=== PATIENT | female | born 1955 | race Caucasian/White ===

== ENCOUNTER 2016-05-14 21:23 | Inpatient (IN) | payer OTHER ==
[2016-05-14] MEDS ORDERED: ASPIRIN PO STA (21:57)
[2016-05-14] MEDS ORDERED: NITROGLYCERIN SL PRN (21:57)
--- NOTE | 2016-05-14 22:02 | PROVIDER DOCUMENTATION ---
HPI-General Adult - General Source: patient, family - History of Present Illness -Gen Adult Nature of Presenting Problems: Pt is a 61 yof who presents to ER with CC of increased lethargy. Pt reports that she has breast, bone, liver, liver, and brain cancer and was in [place] on Sunday for a cancer treatment. Pt also reports that in Mid-March, she had approximately 800mL of fluid removed from "the space between her lungs and back." On exam, pt is mildly hypotensive (108/71) and had 3+ bilateral lower extremity pitting edema. Location of Pain/Injury: reports: none Pain Radiation: reports: no radiation Quality of Pain: reports: none Severity: reports: mild Onset/Duration: reports: unsure, this morning Timing: reports: still present Context/Activities at Onset: reports: rest, sleep Associated Symptoms: reports: fatigue, weakness, other (increased lethargy; "been sleeping all day"). denies: anxiety, arm pain, back/neck pain, chest pain , constipation, cough, diaphoresis, diarrhea, dizziness, EENT symptoms, fever/ chills, genitourinary problems, headaches, heartburn, joint pain, loss of appetite, malaise, muscle aches, sinus congestion/drainage, nausea, rash, seizure, shortness of breath, sensory/motor loss, pain with inspiration, swelling/mass in abdomen, syncope, vomiting, trouble walking <Sergio Jauregui - Last Filed: 05/15/16 01:08> <Eldon Jonas - Last Filed: 05/15/16 04:30> - General Chief Complaint: General Adult Stated Complaint: SOB Time Seen by Provider: 05/14/16 21:53 Allergies/Adverse Reactions: Patient Allergies Allergy/AdvReac Type Severity Reaction Status Date / Time codeine [Codeine] Allergy Severe Unknown Verified 05/14/16 22:35 meperidine HCl * Allergy Severe Unknown Verified 05/14/16 22:35 [From Demerol] Home Medications: Home Medication List Medication Instructions Recorded Confirmed Last Taken Type Potassium Chloride E.r. [Klor-Con] 20 meq PO DAILY 10/28/13 05/14/16 05/14/16 07 :00 History Omeprazole [Prilosec] 20 mg PO DAILY@0700 #0 capsule 11/01/13 05/14/1617 07:00 Rx Metoprolol Succinate [Toprol Xl] 12.5 mg PO DAILY 12/05/13 05/14/16 05/14/16 07: 00 History Folic Acid 1 mg PO DAILY 08/31/14 05/14/16 05/14/16 07:00 History Ergocalciferol (Vitamin D2) 50,000 unit PO DIRECTED 09/02/14 05/14/16 07:00 History [Drisdol] Cetirizine HCl [Zyrtec] 10 mg PO DAILY 05/14/16 05/14/16 05/14/16 07:00 History Dexamethasone [Decadron] 4 mg PO BID 05/14/16 05/14/16 05/14/16 19:00 History Furosemide [Lasix] 40 mg PO DAILY 05/14/16 05/14/16 05/14/16 07:00 History Gabapentin 300 mg PO TID 05/14/16 05/14/16 05/14/16 19:00 History Spironolactone [Aldactone] 25 mg PO BID 05/14/16 05/14/16 05/14/16 19:00 History Review of Systems - Adult - REVIEW OF SYSTEMS - ADULT Constitutional: reports: fatique, other (increased lethargy). denies: chills, fever, night sweats, weight gain, weight loss Eyes: reports: no symptoms reported Ears, Nose, Mouth & Throat: reports: no symptoms reported Cardiovascular: denies: chest pain, edema, heart murmur, irregular heart rate, orthopnea, palpitations, poor circulation, PND, syncope Respiratory: denies: chronic cough, cough, dyspnea on exertion, excessive sputum production, hemoptysis, pleurisy, shortness of breath, wheezing Gastrointestinal: denies: abdominal pain, hematemesis, constipation, diarrhea, difficulty swallowing, frequent heartburn, nausea, poor appetite, rectal bleeding, vomiting Genitourinary: reports: no symptoms reported Musculoskeletal: reports: no symptoms reported Integumentary: reports: no symptoms reported Neurological: reports: no symptoms reported Psychiatric: reports: no symptoms reported Endocrine: reports: no symptoms reported Hematologic/Lymphatic: reports: no symptoms reported Allergic/Immunologic: reports: no symptoms reported All Other Systems: Reviewed and Negative <Sergio Jauregui - Last Filed: 05/15/16 01:08> Past History - Adult - PAST MEDICAL HISTORY-ADULT Review of Records: reports: Nursing Assessment Review, Medications Reviewed Other Conditions: reports: other cancer (breast;bone;liver;brain) - IMMUNIZATION STATUS Childhood Immunizations: See Nurse Assessment Flu Vaccine: See Nurse Assessment <Sergio Jauregui - Last Filed: 05/15/16 01:08> Physical Exam-General - PHYSICAL EXAM-ADULT Initial Vital Signs Reviewed: Yes - CONSTITUTIONAL General Appearance: appears well, alert, mild distress, lethargic, slow to respond. negative: no apparent distress, moderate distress, severe distress, cachetic, obese, thin, anxious, obtunded, combative - RESPIRATORY Respiratory: chest non-tender, lungs clear, normal breath sounds. negative: respiratory distress, decreased breath sounds, accessory muscle use, wheezing - CARDIOVASCULAR Cardiovascular: normal peripheral pulses, regular rate, rhythm. negative: bradycardia, tachycardia, irregularly irregular - LYMPHATIC Lymphatic: no adenopathy. negative: axilla node tender, cervical node tenderness, inguinal node tender - MUSCULOSKELETAL Back Exam: no CVA tenderness, no vertebral tenderness. negative: CVA tenderness , decreased range of motion Extremity: pedal edema, swelling (3+ pitting edema, bilateral lower extremity). negative: normal range of motion, non-tender, normal gait, erythema, tenderness - SKIN Integumentary: swelling. negative: normal color, normal turgor, warm/dry, abrasion(s), erythema, laceration(s), tenderness - NEUROLOGIC Neurologic: grossly normal, no motor/sensory deficits. negative: facial droop, focal weakness, motor weakness, sensory deficit - PSYCHIATRIC Psych/Mental Status: normal mood/affect, normal thought content, normal thought process, oriented x 3. negative: disoriented x 3, anxious, disheveled, depressed affect, paranoid, tearful <Sergio Jauregui - Last Filed: 05/15/16 01:08> Progress - PLAN OF CARE/RESULTS Progress/Plan/Lab Results: Vital Signs - 24 hr 05/14/16 21:26 Temperature 97.6 F Pulse Rate 81 Respiratory 12 Rate Blood Pressure 108/59 O2 Sat by Pulse 100 Oximetry Orders Category Date Time Status Cardiac Monitoring DIRECTED Care 05/14/16 21:57 Active Saline Loc NOW Care 05/14/16 21:57 Active CHEST-2 VIEWS [RAD] Stat Exams 05/14/16 21:57 Taken HEAD W/O CONTRAST [CT] Stat Exams 05/14/16 21:58 Taken CBC WITH ELECTRONIC DIFF [HEME] Stat Lab 05/14/16 22:38 Completed CK PROFILE [SP CHEM] Stat Lab 05/14/16 22:38 Completed COMPREHENSIVE METABOLIC PANEL [CHEM] Stat Lab 05/14/16 22:38 Completed MAGNESIUM [CHEM] Stat Lab 05/14/16 22:38 Completed PRO B-NATRIURETIC PEPTIDE Stat Lab 05/14/16 22:38 Received PROTIME WITH INR [COAG] Stat Lab 05/14/16 22:38 Completed PTT [COAG] Stat Lab 05/14/16 22:38 Completed TROPONIN T Stat Lab 05/14/16 22:38 Completed Aspirin Med 05/14/16 21:57 Discontinued 325 mg PO STAT STA Nitroglycerin Sl [Nitroglycerin] Med 05/14/16 21:57 Active 0.4 mg SL Q5M PRN PRN EKG [EKG] Stat Ther 05/14/16 21:57 Ordered Laboratory Tests 05/14/16 05/14/16 05/14/16 22:38 22:38 22:38 WBC 7.40 RBC 3.44 L Hgb 10.3 L Hct 32.7 L MCV 95.1 MCH 29.9 MCHC 31.5 L RDW Std Deviation 15.8 H Plt Count 155 MPV 10.6 H Immature Gran % (Auto) 0.3 Neut % (Auto) 92.6 H Lymph % (Auto) 1.8 L [place] % (Auto) 4.5 Eos % (Auto) 0.7 Baso % (Auto) 0.1 Immature Gran # (Auto) 0.02 Neut # (Auto) 6.86 H Lymph # (Auto) 0.13 L [place] # (Auto) 0.33 Eos # (Auto) 0.05 Baso # (Auto) 0.01 PT 12.5 H INR 1.18 PTT (Actin FS) 27.2 Sodium 136 Potassium 3.9 Chloride 94 L Carbon Dioxide 29 Anion Gap 13 BUN 20 Creatinine 1.0 H Estimated GFR/1.73 m2 57 BUN/Creatinine Ratio 20 Glucose 127 H Calculated Osmolality 276 Calcium 8.8 Magnesium 1.9 Total Bilirubin 0.18 L AST 32 H ALT 15 Alkaline Phosphatase 89 Creatine Kinase 102 Troponin T Total Protein 5.8 L Albumin 3.5 Globulin 2.3 Albumin/Globulin Ratio 1.5 05/14/16 22:38 WBC RBC Hgb Hct MCV MCH MCHC RDW Std Deviation Plt Count MPV Immature Gran % (Auto) Neut % (Auto) Lymph % (Auto) [place] % (Auto) Eos % (Auto) Baso % (Auto) Immature Gran # (Auto) Neut # (Auto) Lymph # (Auto) [place] # (Auto) Eos # (Auto) Baso # (Auto) PT INR PTT (Actin FS) Sodium Potassium Chloride Carbon Dioxide Anion Gap BUN Creatinine Estimated GFR/1.73 m2 BUN/Creatinine Ratio Glucose Calculated Osmolality Calcium Magnesium Total Bilirubin AST ALT Alkaline Phosphatase Creatine Kinase Troponin T 0.015 Total Protein Albumin Globulin Albumin/Globulin Ratio - XRAY 1 XRAY: Bilateral XRAY Study: Chest Impression: See EMR Report XRAY Interpretation: R sided effusion - CONSULTS/PCP/HOSPITALIST Notification #1 *Consult/PCP/Hospitalist*: Dr. Holder (Hospitalist) Time Discussed: 23:26 Consult Disposition: Admit (Dr. Holder wanted urine tested before accepting) #2 Consult: Dr. Holder (Hospitalist) Time Discussed: 01:10 Consult Disposition: Admit <Sergio Jauregui - Last Filed: 05/15/16 01:08> Departure - Departure Time of Disposition Order: 23:26 Certified Medical Emergency: Emergent <Sergio Jauregui - Last Filed: 05/15/16 01:08> - Departure Time of Disposition Order: 04:00 Certified Medical Emergency: Emergent <Eldon Jonas - Last Filed: 05/15/16 04:30> - Departure DIAGNOSIS: Hepatic encephalopathy Disposition: ADMITTED INPATIENT 09 Condition: Stable Attestation - Scribe Verification/Attestation Scribe:: Sergio Jauregui Acting as Scribe for:: Eldon Jonas Scribe documention review:: This chart was documented by a scribe and accurately reflects the service the provider performed and the decisions made by the provider. <Sergio Jauregui - Last Filed: 05/15/16 01:08> Physician Attestation
[2016-05-14 23:04] LABS: BASO% 0.1 % (0.0-0.8); EOS# 0.05 X1000 (0.0-0.7); EOS% 0.7 % (0.0-10.0); HEMATOCRIT 32.7 % (37.0-47.0); HEMOGLOBIN 10.3 g/dL (12.0-16.0); IMM GRAN# 0.02 X1000 (0.0-0.04); IMM GRAN% 0.3 % (0.0-0.5); LYMPH# 0.13 X1000 (1.2-3.4); LYMPH% 1.8 % (20.5-51.1); MANUAL DIFF NEEDED? NO; MCH 29.9 PG (27-31); MCHC 31.5 g/dL (33-37); MCV 95.1 FL (81-99); MONO# 0.33 X1000 (0.11-0.59); MONO% 4.5 % (1.7-9.3); MPV 10.6 FL (7.4-10.4); NEUT% 92.6 % (42.2-75.2); PLT 155 X1000 (130-400); RBC 3.44 XMIL (4.2-5.4)
[2016-05-14 23:11] LABS: INR 1.18; PROTIME 12.5 Seconds (9.2-11.7); PTT 27.2 Seconds (22.0-36.0)
[2016-05-14 23:15] LABS: ALBUMIN 3.5 g/dL (3.5-5.0); CALCIUM 8.8 mg/dL (8.8-10.2); MAGNESIUM 1.9 mg/dL (1.5-2.7); POTASSIUM 3.9 mmol/L (3.5-5.1); TOTAL BILIRUBIN 0.18 mg/dL (0.20-1.00); TOTAL PROTEIN 5.8 g/dL (6.3-8.3)
[2016-05-15] MEDS ORDERED: DECADRON IV ONE (00:34)
[2016-05-15 00:40] LABS: URINE MICRO REVIEW NEEDED? NO; URINE SOURCE CATH
[2016-05-15 00:41] LABS: BILIRUBIN URINE NEGATIVE (NEGATIVE); BLOOD URINE NEGATIVE (NEGATIVE); COLOR YELLOW; GLUCOSE URINE NEGATIVE (NEGATIVE); LEUKOCYTES URINE NEGATIVE (NEGATIVE); NITRITE URINE NEGATIVE (NEGATIVE); PROTEIN URINE NEGATIVE (NEGATIVE); TURBIDITY URINE CLEAR (CLEAR); UROBILINOGEN URINE NORMAL (NORMAL)
[2016-05-15 00:43] LABS: UR EPITHELIAL CELLS <10 /HPF (<10); URINE BACTERIA NEGATIVE /HPF; URINE RBC <10 /HPF (<10); URINE WBC <10 /HPF (<10)
[2016-05-15 01:03] LABS: ALLEN TEST YES; BE 7.5 mmoll (-3.0-3.0); BLOOD TYPE ARTERIAL; DRAW SITE R RADIAL; METHB 1.2 % (0.0-1.5); O2(CT) 12.3 mL/dL (15.0-23.0); PO2(98.6) 107 mmHg (60-100); SAMPLE BLOOD; SAO2 98.1 % (95.0-100.0); THB 9.1 g/dL (11.5-17.4)
[2016-05-15 01:04] LABS: MODALITY CANNULA; PCO2(98.6) 54 mmHg (35-45)
--- NOTE | 2016-05-15 04:34 | HISTORY AND PHYSICAL ---
PRIMARY CARE PROVIDER: Dr. Kael Beckwith. PRIMARY [employer] SALES COUNTER MANAGER: Dr. Cao at [facility]. NEUROLOGIST: Her neurologist I believe is a Dr. Sifuentes, also at [place]. CHIEF COMPLAINT: Altered mental status, increased drowsiness and weakness. HISTORY OF PRESENT ILLNESS: Ms Beasley is an unfortunate 61-year-old female who has a past medical history of breast cancer with metastases to the brain, bone and liver. The source of information during the examination is her who is at the bedside. Ms Beasley has other medical problems such as COPD, chronic diastolic congestive heart failure, and continues to smoke cigarettes roughly a 3rd of a pack per day. She presented to the emergency room tonight according to her because since this last week she has had increased altered mental status , has been more lethargic and has been sleeping more. On of this previous week, she reportedly had her Ceftin. On Sunday, she had she had chemotherapy treatment. After that time as noted above she became less and less responsive. A chest x-ray obtained in the emergency room showed a left-sided pleural effusion which appears to be chronic. On April 03, according to the , she had 800 mL removed by thoracentesis from the left lung. Noncontrasted CT was obtained which did limit the study, however, it did show a small area of ischemia or edema in the right basal ganglia and a questionable area in the cerebellum. It recommended followup with MRI. Laboratory data completed in the emergency room was grossly normal and she will be admitted to the medical floor for further evaluation and treatment. PAST MEDICAL HISTORY: Congestive heart failure secondary to diastolic dysfunction; breast cancer with metastasis to the brain, bone and liver; osteoporosis; and moderate COPD with 3 L home O2. PAST SURGICAL HISTORY: Tonsillectomy with adenoidectomy, left mastectomy, hysterectomy, Port-A- Cath placement and removal x2, thoracentesis, right chemical pleurodesis. ALLERGY: Codeine causing nausea and vomiting. FAMILY HISTORY: Both parents in a motor vehicle accident. SOCIAL HISTORY: Lives with her . Has a 50 year pack history of smoking. Continues to smoke roughly a 3rd of a pack of cigarettes per day. Denies alcohol or illicit drug use or abuse. HOME MEDICATIONS: 1. Klor-Con 20 mEq p.o. daily. 2. Prilosec 20 mg p.o. daily. 3. Toprol-XL 12.5 mg p.o. daily. 4. Folic acid 1 mg p.o. daily. 5. Vitamin D2 5000 units p.o. as directed. 6. Lasix 40 mg p.o. daily. 7. Neurontin 300 mg p.o. t.i.d. 8. Zyrtec 10 mg p.o. daily. 9. Decadron 4 mg p.o. b.i.d. 10. Aldactone 25 mg p.o. b.i.d. REVIEW OF SYSTEMS: Constitutional: Fourteen point review of systems could not be conducted with the patient as she is very lethargic, on the verge of being obtunded. She does reflex to painful stimulus but immediately closes her eyes. She did not say anything during the examination. Review of systems was conducted with the . He stated increased fatigue and lethargy, decreased ability to do ADLs, increased weakness. HEENT: Denied any acute visual changes that he was aware of. Cardiovascular: Denied chest pain, palpitations. Pulmonary: See HPI as the patient did have some increase of shortness of breath. Gastrointestinal: Decreased bowel movements over the last couple of days. No reflux, melena, hematochezia, hematemesis. No polydipsia, polyuria, polyphagia. Skin: Patient is positive for 2 healing skin ulcerations on bilateral shins as well as right forearm ecchymosis. Genitourinary: No dysuria or stress incontinence. Neurological: See HPI related to decreased mentation. PHYSICAL EXAMINATION: VITAL SIGNS: Temperature 97.6 degrees, pulse 81, respirations 12, blood pressure 180/59, oxygen saturation 100% on 3 L nasal cannula. GENERAL: Chronically ill-appearing 61-year-old lady does not answer questions, is very lethargic, does reflex to deep stimulation in the ER stretcher, is not in acute distress. HEENT: Head is atraumatic, normocephalic. Pupils equal, round, reactive to light. Extraocular eye movement intact. Sclerae is anicteric. Conjunctivae is not pale. Oral mucosa is moist. NECK: Supple. No JVD. Trachea is midline. No bruit on auscultation. CARDIOVASCULAR: S1-S2 appreciated. Regular rhythm. No appreciable murmurs, gallops, rubs. LUNGS: Poor inspiratory effort. Diminished breath sounds bilaterally left greater than right. Mild crepitations noted in bilateral bases. No wheezing or rhonchi. Shallow respirations noted. Symmetrical rise and fall with respirations. ABDOMEN: Protuberant, soft, nondistended, nontender. Bowel sounds normoactive all 4 quadrants. No pulsatile mass. No organomegaly could be palpated. EXTREMITIES: Right upper extremity 1+ pitting edema. Left upper extremity in a compression stocking related to chronic lymphedema which appears to be 3+. Bilateral lower extremities 2+ pitting edema. 1+ pedal pulses bilaterally. No clubbing or cyanosis. SKIN: Warm and dry. Healing ulceration noted on bilateral shins. Right upper extremity noted ecchymosis. GENITOURINARY: No bladder distention noted, otherwise deferred. BREASTS: Left mastectomy noted, otherwise deferred. NEUROLOGICAL: Patient is lethargic and does not respond to verbal questioning so baseline orientation could not be obtained. The patient did follow commands to a degree. Bilateral upper extremities could be held partially against gravity but not long enough to assess for asterixis. Bilateral lower extremities again could be lifted slightly against gravity for 1 -2 seconds. Cranial nerves could not be fully tested during examination. DIAGNOSTIC DATA: Noncontrasted CT of the head, which yielded limited results, did show a small area of ischemia/edema in the right basal ganglia with a questionable area in the cerebellum. Chest x-ray showed a chronic left-sided effusion. LABORATORY DATA: WBC 7.40, hemoglobin 10.3, hematocrit 32.7, platelet count 155 ,000. PT 12.5, INR 1.18 PTT 27.2. ABG: pH 7.40, pCO2 54, PO2 107, bicarb 30.8, this was obtained on 3 L nasal cannula. Sodium 136, potassium 3.9, chloride 94, carbon dioxide 29, BUN 20, creatinine 1, glucose 127, AST 32, ALT 15, total bilirubin 0.18. Ammonia level 14. Urine unremarkable. ASSESSMENT AND PLAN: 1. Encephalopathy, paraneoplastic versus toxic. 2. Chronic obstructive pulmonary disease. 3. Chronic diastolic congestive heart failure. 4. Breast cancer with metastasis to the brain, bone and liver. 5. Continued tobacco abuse. PLAN: The patient will be admitted to the medical floor with telemetry. She was noted to be mildly hypercapnic. However, given her history of COPD it is likely that she is a chronic CO2 retainer and she is compensated with a pH of 7.40. We will monitor at this time and not apply BiPAP as this is likely not the reason for the patient's sedation. She has been placed in inpatient status. We will continue her home medications and defer changes to Dr. Beckwith, her primary care provider. Ten mg IV Decadron was given in the emergency room. We will consult Dr. Kiera Dawn as the family wished not to see Dr. Guo as she had previously. MRI with contrast of the brain in a.m. to evaluate for new lesions which could be the source of her change in mentation. It is possible that the patient may need a thoracentesis as she has in the past. For this reason, we will use intermittent pneumatic compression hose for DVT prophylaxis instead of Lovenox. Vizcaino catheter will be placed for adequate I Os. The patient will be held NPO at this time. According to family, she was able to maintain most of her activities of daily living so Physical Therapy will be consulted. Recheck CBC and BMP. Check TSH level. Further recommendations per patient clinical course. Dictated by KUN Gonzalez for Alfred Holder MD Case discussed with WOOD CABINETMAKER and exam done independently by me. MARLON
[2016-05-15 05:04] LABS: AGAP 12; BUN 22 mg/dL (8-22); CALCIUM 8.5 mg/dL (8.8-10.2); CHLORIDE 96 mmol/L (98-107); COSMO 279; POTASSIUM 4.2 mmol/L (3.5-5.1); SODIUM 137 mmol/L (136-145); TCO2 29 mmol/L (25-35)
[2016-05-15 05:09] LABS: HEMATOCRIT 30.7 % (37.0-47.0); HEMOGLOBIN 9.6 g/dL (12.0-16.0); IMM GRAN# 0.02 X1000 (0.0-0.04); IMM GRAN% 0.3 % (0.0-0.5); LYMPH# 0.09 X1000 (1.2-3.4); LYMPH% 1.5 % (20.5-51.1); MANUAL DIFF NEEDED? YES; MCH 29.6 PG (27-31); MCHC 31.3 g/dL (33-37); MCV 94.8 FL (81-99); MONO# 0.17 X1000 (0.11-0.59); MONO% 2.8 % (1.7-9.3); MPV 8.9 FL (7.4-10.4); NEUT% 95.4 % (42.2-75.2); PLT 115 X1000 (130-400); RBC 3.24 XMIL (4.2-5.4)
[2016-05-15 06:34] LABS: BANDS 4 % (0-1); LYMPHS 2 % (21-51); MONO 4 % (1-9)
--- NOTE | 2016-05-15 07:30 | Diag Imaging Result Document ---
PROCEDURE NAME: HEAD W/O CONTRAST - 05/14/2016 CT BRAIN WITHOUT CONTRAST: TECHNIQUE: Dose-reduction protocol. COMPARISON: No comparison films. FINDINGS: No parenchymal hemorrhage. No epidural or subdural hematoma. No subarachnoid hemorrhage. There is atrophy. There are ischemic changes versus edema in the right basal ganglia near the internal capsule. Questionable small hypodense areas in the cerebellum. No hydrocephalus. No sinus opacification. IMPRESSION: 1. No hemorrhage. 2. Atrophy. 3. Microvascular ischemic changes versus edema in the right basal ganglia and possible cerebellum. An MRI is recommended. A preliminary report was given at 10:21 p.m.
--- NOTE | 2016-05-15 07:47 | Diag Imaging Result Document ---
PROCEDURE NAME: CHEST-2 VIEWS - 05/14/2016 FRONTAL AND LATERAL CHEST, TWO VIEWS: COMPARISON: Compared to 01/15/2014. FINDINGS: There is small to moderate sized bilateral pleural effusions. There is bibasilar atelectasis and there may be underlying infiltrates as well. The heart is not enlarged. The patient previously had a right-sided [id number]. This has been removed. No pneumothorax Mild vascular distension. IMPRESSION: Persistent pleural effusions with mild pulmonary edema and basilar atelectasis.
[2016-05-15] MEDS ORDERED: KLOR-CON PO SCH (09:00)
[2016-05-15] MEDS ORDERED: ALDACTONE PO SCH (09:00)
[2016-05-15] MEDS ORDERED: DECADRON PO SCH (09:00)
[2016-05-15] MEDS ORDERED: NEURONTIN PO SCH (09:00)
[2016-05-15] MEDS ORDERED: LASIX PO SCH (09:00)
[2016-05-15] MEDS: VITAMIN D PO SCH (09:28)
[2016-05-15] MEDS: TOPROL XL PO SCH (09:29)
[2016-05-15] MEDS: PRILOSEC PO SCH (09:31)
[2016-05-15] MEDS: FOLIC ACID PO SCH (09:33)
--- NOTE | 2016-05-15 10:07 | Diag Imaging Result Document ---
PROCEDURE NAME: MRI BRAIN W W/O CONTRAST - 05/15/2016 MRI OF THE BRAIN WITH AND WITHOUT GADOLINIUM: FINDINGS: There is ill-defined increased T2-weighted signal intensity present in the mid basal ganglia region on the right side extending slightly into the right cerebral peduncle anteriorly. There may be a minimal focus of restricted diffusion in this region. The diffusion restriction region is much smaller than the abnormality on T2. There is no evidence of bleed or abnormal extra-axial fluid collection. There is abnormal gadolinium enhancement within the region in question measuring at least 15 mm in diameter. This is somewhat heterogeneous with central as well as peripheral enhancement. Additionally there is a small focus of abnormal enhancement in the subcortical white matter in the right parietal lobe near the interhemispheric fissure measuring between 4 to 5 mm in size. There are no previous MR studies available for comparison. IMPRESSION: Metastatic disease in the right hemisphere as described. By history, the patient had a previous study in [place] which is not available for comparison. Direct comparison would be desirable.
[2016-05-15] MEDS: DECADRON IV SCH ×3 (11:35→22:45)
[2016-05-15] MEDS: LASIX IV SCH ×2 (11:36→22:45)
[2016-05-15] MEDS: ZOSYN 4.5 GM/NS 100 ML IV SCH ×2 (13:35→18:16)
--- NOTE | 2016-05-15 14:43 | PROGRESS NOTE ---
DATE: 05/15/2016 Ms. Beasley was admitted to [facility] on 05/15/2015 with altered mental status. She has a long standing history of breast cancer with metastases to the liver and brain. Her initial CT scan demonstrated no hemorrhage or atrophy. There were questionable hypodense areas in the cerebellum and the right ganglia. She is already taking Decadron and Lasix at home. She has had increasing shortness of breath. Her chest x-ray showed small to moderate size bilateral pleural effusions. There is bibasilar atelectasis with potentially underlying infiltrates. When I just saw her she would open her eyes to verbal stimuli. She would answer questions and then fall back asleep. PHYSICAL EXAMINATION: Vital Signs: She is afebrile. Pulse 74, respirations 18, blood pressure 132/69. Cardiovascular: Regular rate and rhythm. Lungs: Diminished breath sounds in the bases bilaterally. Abdomen: Soft, nontender, with active bowel sounds. Extremities: Trace ankle edema. ASSESSMENT AND PLAN: 1. Altered mental status. The etiology of her mental status changes is unclear. Her ammonia level was normal which would tend to argue against a hepatic encephalopathy. I have not been able to find any obvious source of infection. She has a normal white count. Her urinalysis was clear. Her MRI of the brain today demonstrated metastatic disease in the right hemisphere. It also showed the possibility of a 3rd lesion in the right parietal lobe near the interhemispheric fissure. I am concerned that she has encephalopathy due to brain metastases. I am going to begin Decadron 4 mg IV q.6 hours and Lasix 40 mg IV q.12 hours. 2. Acute on chronic congestive heart failure secondary to diastolic dysfunction. We will place her on a salt and fluid restricted diet and aggressively diurese her with Lasix. We will follow strict I's and O's. 3. Chronic obstructive pulmonary disease. Chest x-ray shows the possibility of an infiltrate. We will continue supplemental O2, add DuoNeb nebulizer treatments and begin IV Zosyn.
[2016-05-15] MEDS: DUONEB (A & A) INH SCH ×3 (15:40→23:28)
--- NOTE | 2016-05-15 18:30 | CONSULTATION ---
DATE OF CONSULTATION: 05/15/2016 ADMISSION REQUESTED BY: Dr. Holder. REASON FOR ADMISSION: Metastatic breast cancer, patient currently receiving treatment in [place]. HISTORY OF PRESENT ILLNESS: Ms Beasley is a 61-year-old female with metastatic breast cancer who presented to [facility] Emergency Department complaining of increased lethargy. The patient is not able to participate in interview due to her lethargy. History is taken from her and her other family members at bedside. Patient is currently getting treated at [place] under Dr. Cao for metastatic breast cancer with metastasis to the liver, brain and bones. She is currently receiving Herceptin and Zometa as well as Faslodex. The patient's last treatment was on 05/11/2016. Since that time her reports she has been increasingly lethargic and not easily aroused. The patient will be open her eyes to stimulus but then will not continue to stay awake long enough to really talk with her. Patient is status post thoracentesis for pleural effusion back in March. Per the the patient's last treatment was Herceptin and Zometa. She is next due for Faslodex on 06/02/2016. She had a brain MRI back in November 2015. Patient is status post CyberKnife radiation therapy for 2 known brain lesions previously. Per the 1 was "7 mm outside the brain and the other 17 mm inside" the brain. Only other complaint the identifies is the patient being somewhat constipated over the past week. PAST MEDICAL HISTORY: 1. Metastatic breast cancer. 2. COPD. 3. CHF. 4. Bone metastasis/osteoporosis. PAST SURGICAL HISTORY: 1. Tonsillectomy. 2. Left mastectomy with lymph node dissection. 3. Hysterectomy. 4. Thoracentesis. 5. Port-A-Cath insertion and removal x2. Patient does not currently have a Port-A-Cath in place. SOCIAL HISTORY: She smokes about 2-3 cigarettes per day. She has been a smoker for 50 years. Lives with . She does not use any illicit drugs or drink any alcohol. FAMILY HISTORY: Both her parents in a motor vehicle accident. The family denies any history of cancer. REVIEW OF SYSTEMS: As per the HPI. All else is negative or noncontributory. PHYSICAL EXAMINATION: Vital Signs: Temperature 97.9, pulse rate 74, respirations 18, blood pressure 132/69, O2 saturation 97% on 3 L nasal cannula. HEENT: Head appears to be normocephalic., atraumatic. Eyes. Patient only briefly opened her eyes to stimulus. Ears, nose, throat, neck and mouth. Oral mucosa appears to be normal. Trachea midline. Cardiovascular: S1-S2 heard. No murmurs, gallops, rubs appreciated. Regular rate and rhythm. Respiratory: Essentially clear to auscultation bilaterally anteriorly. Gastrointestinal: Abdomen soft, nondistended. Positive bowel sounds. Musculoskeletal: No obvious bony abnormalities. Extremities: The patient does have bilateral +2 pitting edema with some mild erythema, left is equal to right. Neurologic: Again patient will awaken to mild stimulus but will not stay awake for very long. LABS AND STUDIES: Brain MRI shows metastatic disease but there is no comparison. Chest x-ray shows persistent pleural effusion with mild pulmonary edema and basilar atelectasis. White blood cell 6.01, hemoglobin 9.6, hematocrit 30.7, platelets 115,000. Sodium 137, potassium 4.2, chloride 96, CO2 29, BUN 22, creatinine 0.9, glucose 136, ammonia 14, proBNP 899. ASSESSMENT AND PLAN: 1. Metastatic breast cancer. Patient is currently receiving Faslodex as well as Herceptin and Zometa per the family. She is being treated at [facility] by Dr. Cao. Next treatment not due till 06/02/2016. 2. Possible new metastasis on MRI. The noted only 2 previous brain lesions and the current MRI is possibly showing a 3rd lesion. Will go ahead and request that the MRI be sent to the radiology department here for comparison. Patient was on Decadron previously prior to admission. Her Decadron has now been increased to 4 mg IV q.i.d. Await comparison. Patient is status post previously CyberKnife radiation. 3. Chronic obstructive pulmonary disease. Chest x-ray shows some persistent pleural effusions but no obvious infection. Patient is however being covered for infection. Continue IV antibiotics. O2 support. ER doctor discussed starting nebulizer treatment. She is also getting the steroids as per above. Follow cultures. 4. Altered mental status. Will ask for comparison MRI as noted above. She is being covered for infection. Compare MRIs as noted above. She is being covered for infection. No evidence of any metabolic encephalopathy currently. The patient also has no evidence of neutropenia. 5. Congestive heart failure. Patient is getting Lasix intravenous. Monitor for fluid overload. Thank you for allowing us to participate in Ms Beasley's care while she is here at [facility]. Will continue follow along, adjust our treatment plan per hospital course. Dictated by SHERRI Ortega for Kiera Lopez MD
[2016-05-16] MEDS: ZOSYN 4.5 GM/NS 100 ML IV SCH ×4 (03:12→17:54)
[2016-05-16] MEDS: DUONEB (A & A) INH SCH ×6 (03:25→22:55)
[2016-05-16] MEDS: DECADRON IV SCH ×4 (05:19→22:05)
[2016-05-16] MEDS: PRILOSEC PO SCH (06:26)
[2016-05-16] MEDS: FOLIC ACID PO SCH (09:05)
[2016-05-16] MEDS: TOPROL XL PO SCH (09:05)
[2016-05-16 09:09] LABS: HEMATOCRIT 32.2 % (37.0-47.0); MCH 29.7 PG (27-31); MCHC 31.1 g/dL (33-37); MCV 95.5 FL (81-99); MPV 10.9 FL (7.4-10.4); RBC 3.37 XMIL (4.2-5.4)
--- NOTE | 2016-05-16 09:21 | Diag Imaging Result Document ---
PROCEDURE NAME: CHEST-PORTABLE - 05/16/2016 SINGLE FRONTAL RADIOGRAPH OF THE CHEST: COMPARISON: 05/14/2016. FINDINGS: Inspiration is suboptimal. Bilateral effusions are approximately stable. Bibasilar atelectasis and/or infiltrate is unchanged. No new consolidation is identified. Cardiac silhouette is stable. IMPRESSION: Stable chest.
--- NOTE | 2016-05-16 09:29 | PROGRESS NOTE ---
DATE: 05/16/2016 SUBJECTIVE: Ms. Beasley is much more awake. She is in easily arousable and answers questions appropriately. Her MRI of the brain demonstrated a possible new metastases. We started her on IV Lasix and IV Decadron. She was also admitted with chronic respiratory failure secondary to acute COPD exacerbation and acute on chronic congestive heart failure secondary to diastolic dysfunction. She is breathing more comfortably as long as she is wearing her oxygen. Her O2 saturations range from 94% to 97%. They found her early this morning without oxygen, and her O2 saturation was 77%. They resumed her oxygen and her O2 levels are in the mid 90s. She has put out nearly 3 L of fluid. OBJECTIVE: Vital Signs: Temperature 99 degrees, pulse 66, BP 114/58. CV: Regular rate and rhythm. Lungs: Crackles in the bases bilaterally. Abdomen: Soft, nontender, with active bowel sounds. Extremities: Trace pitting edema. ASSESSMENT AND PLAN: 1. Altered mental status. I suspect that her altered mental status was in part due to intracranial metastases with some edema. There was not a shift noted on MRI. We will continue intravenous Decadron and intravenous Lasix. 2. Acute chronic obstructive pulmonary disease exacerbation. We will continue supplemental oxygen, DuoNeb nebulizer treatments, intravenous Decadron and broad-spectrum antibiotics including Zosyn. Chest x-ray yesterday showed the possibility of an infiltrate. She is an immunocompromised host. Given her brain metastases, I do not want to use Levaquin as it would increase the likelihood of seizure activity. 3. Acute on chronic congestive heart failure secondary to diastolic dysfunction. We will continue a salt and fluid-restricted diet and aggressively diurese her with Lasix.
[2016-05-16 10:06] LABS: CALCIUM 8.7 mg/dL (8.8-10.2); POTASSIUM 3.5 mmol/L (3.5-5.1)
[2016-05-16] MEDS: LASIX IV SCH ×2 (13:22→22:05)
[2016-05-17] MEDS: ZOSYN 4.5 GM/NS 100 ML IV SCH ×4 (00:30→21:12)
[2016-05-17] MEDS: DUONEB (A & A) INH SCH ×6 (03:07→23:43)
[2016-05-17] MEDS: PRILOSEC PO SCH (06:22)
[2016-05-17] MEDS: DECADRON IV SCH (08:45)
[2016-05-17] MEDS: FOLIC ACID PO SCH (08:46)
[2016-05-17] MEDS: TOPROL XL PO SCH (08:46)
[2016-05-17] MEDS ORDERED: LASIX IV SCH (09:00)
--- NOTE | 2016-05-17 10:22 | PROGRESS NOTE ---
DATE: 05/17/2016 HISTORY OF PRESENT ILLNESS: Ms. Tashia Beasley is a 61-year-old, lady with a history of breast cancer with distant metastases to the brain. We had started her on IV Decadron and Lasix because of altered mental status. We felt that she was encephalopathic. She is much more awake and alert and she was sitting up in bed and she answered questions appropriately. She was alert and oriented to name, place, and time. She also was noted to have a community-acquired pneumonia as well as acute on chronic flare up of her diastolic congestive heart failure. She seems to be breathing more comfortably. Her O2 saturations were 99% on 2 L. She normally wears oxygen at home. She is breathing more comfortably. She denies any PND, orthopnea or increasing peripheral edema. She continues with a minimal cough which is largely nonproductive. She has no pleuritic chest pain. She remained afebrile. She is on Zosyn as well as DuoNeb nebulizer treatments. OBJECTIVE: Vital signs: Temperature 97.8 degrees, pulse 82, respirations 16, BP 120/52. Cardiovascular: Regular rate and rhythm. Lungs: Crackles in the right base. Abdomen: Soft, nontender, with active bowel sounds. No hepatosplenomegaly. No abdominal bruits. ASSESSMENT: Altered mental status. PLAN: She does have an encephalopathy which I believe is multifactorial. She has intracranial metastases with some edema. We will continue the Decadron and Lasix. We will continue supplemental O2 and broad-spectrum antibiotics for her right lower lobe pneumonia. We will continue a salt and fluid restricted diet and aggressively diurese her with Lasix. Because of the congestive heart failure. I suspect that there has been some degree of hypoxia which also contributed to her mental status changes.
[2016-05-17 10:56] LABS: CALCIUM 8.4 mg/dL (8.8-10.2); POTASSIUM 2.6 mmol/L (3.5-5.1)
[2016-05-17] MEDS: KLOR-CON PO SCH ×2 (13:18→21:13)
[2016-05-17] MEDS: PERCOCET-10 PO PRN (23:39)
[2016-05-18] MEDS: ZOSYN 4.5 GM/NS 100 ML IV SCH ×4 (02:50→23:17)
[2016-05-18] MEDS: DUONEB (A & A) INH SCH ×4 (03:37→21:05)
[2016-05-18] MEDS: PRILOSEC PO SCH ×2 (05:13→06:10)
--- NOTE | 2016-05-18 08:31 | PROGRESS NOTE ---
DATE: 05/18/2016 SUBJECTIVE: Mrs. Beasley has a history of chronic respiratory failure and was admitted to [facility] with an acute chronic obstructive pulmonary disease exacerbation and acute on chronic congestive heart failure secondary to diastolic dysfunction. Clinically, she continues to improve. She is maintaining O2 saturations of 95-99% on 3 L of O2 per nasal cannula. Over the past 3 days her I's and O's are by 4600 mL. She continues with a minimal nonproductive cough. She still has mild shortness of breath with walking to the bathroom. She denies any paroxysmal nocturnal dyspnea or orthopnea. She is much more awake and easily arousable. She answers questions appropriately. She is oriented to name, place, and time. OBJECTIVE: Vital signs: Temperature 98.6 degrees, pulse 107, respiratory rate 19, blood pressure 126/58. Cardiovascular: Regular rate and rhythm. Lungs: Faint crackles in the right base. Abdomen: Soft, nontender, with active bowel sounds. Extremities: Trace pitting edema. ASSESSMENT AND PLAN: 1. Chronic respiratory failure with acute chronic obstructive pulmonary disease exacerbation and acute on chronic congestive heart failure secondary to diastolic dysfunction. She also has a right lower lobe pneumonia. I suspect that this is most likely a gram-negative pneumonia, given the consolidated infiltrate, leukocytosis, and immunocompromise state. We will continue supplemental O2, but I am going to decrease the duo nebs every 6 hours because of the tachycardia. We will taper down on the IV steroids. We will continue Zosyn. She has had excellent urine output and I am going to change the Lasix to 40 mg daily. We will check a PA and lateral chest x-ray today. 2. Physical debility. She is making slow progress with physical therapy. I do not believe that she would be strong enough to go home with home health. We will ask community mental health social worker to arrange for Home Health. [facility]
[2016-05-18] MEDS: FOLIC ACID PO SCH (09:21)
[2016-05-18] MEDS: KLOR-CON PO SCH ×2 (09:21→22:35)
[2016-05-18] MEDS: DECADRON PO SCH (09:22)
[2016-05-18] MEDS: LASIX IV SCH (09:22)
[2016-05-18] MEDS: TOPROL XL PO SCH (09:23)
--- NOTE | 2016-05-18 10:26 | Diag Imaging Result Document ---
PROCEDURE NAME: CHEST-PORTABLE - 05/18/2016 AP PORTABLE CHEST AT 0925 HOURS: FINDINGS: There are bilateral pleural effusions. There is alveolar opacity in the inferolateral right upper lobe. There is ill-defined opacity in both lower lobes. IMPRESSION: Pulmonary edema with pleural effusions and possible right upper lobe pneumonia.
[2016-05-18] MEDS: LASIX PO SCH (11:30)
[2016-05-19] MEDS: DUONEB (A & A) INH SCH ×3 (03:25→20:34)
[2016-05-19] MEDS: PRILOSEC PO SCH (06:04)
[2016-05-19] MEDS: ZOSYN 4.5 GM/NS 100 ML IV SCH ×3 (06:04→18:34)
--- NOTE | 2016-05-19 08:58 | PROGRESS NOTE ---
DATE: 05/19/2016 SUBJECTIVE: Ms. Beasley is awake and easily arousable. Nursing staff reported that she is walking in the halls and is gaining strength. She still has mild shortness of breath with marked exertion. She is overall breathing more comfortably. She still has intermittent nonproductive cough. She denies any pleuritic chest pain, nausea or vomiting. Her chest x-ray from 05/18/2016 demonstrates small bilateral pleural effusions with a possible infiltrate in the right upper lobe. OBJECTIVE: Vital Signs: Her blood pressure remains well controlled. She is afebrile. Pulse 103, BP 125/63. O2 100% on 2 L of O2. CV: Regular rate and rhythm. Lungs: Distant breath sounds with increased period of expiration. There are occasional crackles in the bases. Abdomen: Soft, nontender, with active bowel sounds. Extremities: One plus pitting edema in the lower extremities. ASSESSMENT AND PLAN: 1. Chronic respiratory failure. 2. Acute chronic obstructive pulmonary disease exacerbation, complicated by gram-negative pneumonia, as well as [id number] congestive heart failure secondary to diastolic dysfunction. Clinically, she continues to improve. We will continue supplemental O2, DuoNeb nebulizer treatments, and IV Zosyn. We will continue a salt and fluid restricted diet and I have backed down on her Lasix to 40 mg daily. We will continue to increase her activity and will continue to work with physical therapy. We have consulted [employer] for assistance with rehab placement. The family would be interested in [facility].
[2016-05-19] MEDS: DECADRON PO SCH (08:59)
[2016-05-19] MEDS: LASIX PO SCH (08:59)
[2016-05-19] MEDS: TOPROL XL PO SCH (08:59)
[2016-05-19] MEDS: FOLIC ACID PO SCH (08:59)
[2016-05-19] MEDS: KLOR-CON PO SCH ×2 (08:59→21:27)
[2016-05-19 11:00] LABS: CALCIUM 8.5 mg/dL (8.8-10.2); POTASSIUM 3.7 mmol/L (3.5-5.1)
[2016-05-19] MEDS ORDERED: BLISTEX MEDICATED BERRY LIP BALM TOP PRN (21:24)
[2016-05-20] MEDS: ZOSYN 4.5 GM/NS 100 ML IV SCH ×4 (01:19→18:07)
[2016-05-20] MEDS: DUONEB (A & A) INH SCH ×5 (03:02→20:27)
[2016-05-20] MEDS: PRILOSEC PO SCH (05:46)
[2016-05-20] MEDS: KLOR-CON PO SCH ×2 (11:20→22:29)
[2016-05-20] MEDS: FOLIC ACID PO SCH (11:20)
[2016-05-20] MEDS: DECADRON PO SCH (11:20)
[2016-05-20] MEDS: TOPROL XL PO SCH (11:20)
[2016-05-20] MEDS: LASIX PO SCH (11:21)
[2016-05-20] MEDS ORDERED: ZAROXOLYN PO ONE (12:04)
--- NOTE | 2016-05-20 13:07 | PROGRESS NOTE ---
DATE: 05/20/2016 SUBJECTIVE: The patient states she is still coughing but is rarely productive. She is having a bit of wheezing, but overall her breathing has improved. She has had no fever or chills. She is eating well, and bowels are moving normally. OBJECTIVE: Vital signs: T-max of 98.6, temperature now 98.6, pulse rate 105, blood pressure 135/61, she is 100% saturated on 2 L nasal cannula. Fluid balance is positive 845. General: She is a well-developed white female in no acute distress. She is alert, oriented, conversant and appropriate. Lungs show crackles in the left upper lobe. There are slightly diminished breath sounds in both bases. Reasonable air movement. No wheeze noted. Cardiovascular: Irregular tachycardia at about 100 beats per minute at the time of my exam. Abdomen was distended. Bowel sounds were present. She was nontender. Extremities were bilaterally tender with 2 to 3+ edema on both sides. ASSESSMENT AND PLAN: 1. The patient's breathing difficulty is likely multifactorial. She is being treated with antibiotics for pneumonic process. She also has chest x-ray findings consistent with congestive failure according to the radiologist. We will continue her IV antibiotics, her breathing treatments, and we will try to diurese her a little bit more aggressively. Initially she was diuresed pretty well, but we had to back off of the diuretics, and as a result, she has accumulated a positive fluid balance, albeit minor, over the last 2 days. I plan to turn her Lasix up to 60 mg daily in the morning. I will likely give her a small dose of diuretic right now just to afford a better negative fluid balance. 2. We will continue with physical therapy. 3. We will continue to monitor laboratory studies. 4. [facility] is the desire and plan of the family. We will have to wait until Sunday to find out if this is an available avenue for them. 5. Breast cancer. Aware.
[2016-05-21] MEDS: ZOSYN 4.5 GM/NS 100 ML IV SCH ×4 (01:24→17:17)
[2016-05-21] MEDS: DUONEB (A & A) INH SCH ×4 (03:19→19:10)
[2016-05-21] MEDS: PRILOSEC PO SCH (06:00)
[2016-05-21 07:39] LABS: EOS# 0.05 X1000 (0.0-0.7); EOS% 1.1 % (0.0-10.0); HEMATOCRIT 28.8 % (37.0-47.0); HEMOGLOBIN 8.9 g/dL (12.0-16.0); IMM GRAN# 0.02 X1000 (0.0-0.04); IMM GRAN% 0.4 % (0.0-0.5); LYMPH# 0.27 X1000 (1.2-3.4); MANUAL DIFF NEEDED? NO; MCH 28.7 PG (27-31); MCHC 30.9 g/dL (33-37); MCV 92.9 FL (81-99); MONO# 0.24 X1000 (0.11-0.59); MONO% 5.3 % (1.7-9.3); MPV 10.7 FL (7.4-10.4); NEUT% 87.2 % (42.2-75.2); PLT 102 X1000 (130-400)
[2016-05-21 08:06] LABS: CALCIUM 8.6 mg/dL (8.8-10.2); POTASSIUM 3.9 mmol/L (3.5-5.1)
[2016-05-21] MEDS ORDERED: LASIX PO SCH (09:00)
[2016-05-21] MEDS: KLOR-CON PO SCH ×2 (10:32→20:54)
[2016-05-21] MEDS: FOLIC ACID PO SCH (10:33)
[2016-05-21] MEDS: TOPROL XL PO SCH (10:33)
[2016-05-21] MEDS: DECADRON PO SCH (10:33)
[2016-05-21] MEDS: ZAROXOLYN PO SCH (12:34)
--- NOTE | 2016-05-21 14:36 | PROGRESS NOTE ---
DATE: 05/21/2016 SUBJECTIVE: States that she is breathing better. Her appetite is wonderful. She is doing well with physical therapy. She denies any cough, wheezing, or coughing at the present time. OBJECTIVE: Vital Signs: Temperature 98.2, heart rate 98, rate 20, blood pressure 124/62, 94% saturated on 2 L nasal cannula. Fluid balance: Positive 845. General: Her air movement is good bilaterally. She does not have any wheezes or crackles noted. Cardiovascular: Regular. Extremities: Show 2+ pitting edema in the dependent areas. LABORATORIES: White cell count 4.5, hematocrit 28.8, creatinine is 1. Potassium is 3.9. ASSESSMENT AND PLAN: 1. The patient's breathing difficulty is improved. Despite positive fluid balance, she seems to be less wheezy and less wet. I am not sure that she had an absolute pneumonic process going on. Her IV antibiotics are continuing as are breathing treatments. I have changed upper diuretics to an IV format for Lasix in low doses twice daily. I believe that her swelling was preventing appropriate absorption of Lasix by mouth and that she would benefit from this. We will look to obtaining a negative fluid balance today. 2. Physical therapy continues and is going well. 3. Laboratory values are stable. 4. Family requests [facility] rehab. 5. Breast cancer. Aware. Indications for continued hospitalization. The patient's diuresis of her diastolic congestive heart failure as evidenced by history and chest x-ray findings as well as physical findings has not been optimized. We will try to achieve negative fluid balance. We also need to achieve rehab placement prior to discharge.
[2016-05-21] MEDS: LASIX IV SCH (20:54)
[2016-05-22] MEDS: ZOSYN 4.5 GM/NS 100 ML IV SCH ×4 (00:28→18:32)
[2016-05-22] MEDS: PERCOCET-10 PO PRN (01:36)
[2016-05-22] MEDS: DUONEB (A & A) INH SCH ×4 (03:40→20:00)
[2016-05-22] MEDS: ZOFRAN IV PRN ×2 (04:10→10:36)
[2016-05-22] MEDS: PRILOSEC PO SCH (05:57)
[2016-05-22] MEDS: DECADRON PO SCH (08:35)
[2016-05-22] MEDS: KLOR-CON PO SCH ×2 (08:35→22:10)
[2016-05-22] MEDS: LASIX IV SCH (08:35)
[2016-05-22] MEDS: ZAROXOLYN PO SCH (08:35)
[2016-05-22] MEDS: TOPROL XL PO SCH (08:36)
[2016-05-22] MEDS: VITAMIN D PO SCH (08:37)
[2016-05-22] MEDS: FOLIC ACID PO SCH (08:37)
[2016-05-22] MEDS: REGLAN IV PRN ×2 (11:02→17:07)
--- NOTE | 2016-05-22 14:39 | PROGRESS NOTE ---
DATE: 05/22/2016 SUBJECTIVE: The patient reports that she got a Percocet earlier this morning that made her violently nauseated. She eventually got some Zofran and she has settled back down. She states this periodically happens to her. She states that her breathing has continued to improve. She has no complaints in that regard. We had a somewhat spirited discussion because the patient wanted to go home and resume her daily life. Her was adamant that she needed some type of rehabilitation in order to gain her feet before she goes back home. I reinforced the 's position and stated that she needs at least to be able to regain her feet sufficiently before going home to resume her life. OBJECTIVE: Vital Signs: 97.5, 123/64, 71, 18. General: She is a overweight white female who is in no acute distress. She appears to be lucid, appropriate and conversational. Lungs: Show no wheezes or crackles. Cardiovascular: Regular. Extremities: Trace to 1+ edema in the lower extremities. It appears to be somewhat less than previous examinations. LABORATORY: Laboratory holiday today. ASSESSMENT AND PLAN: 1. Patient's breathing difficulty has improved. 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 She seems clinically improved though. We now have her on low dose of IV Lasix twice daily. We dosed some metolazone over the weekend but this can be discontinued. 2. Physical therapy seems to be going well. 3. Will recheck lab values in the morning. 4. Social work is supposed to be interrogating [facility] about placement there. 5. Metastatic breast cancer. Aware. 6. Awaiting a final placement plan. Dr. Chase Tinajero has agreed to take over care beginning tomorrow.
[2016-05-23] MEDS: DUONEB (A & A) INH SCH ×5 (03:41→21:20)
[2016-05-23] MEDS: ZOSYN 4.5 GM/NS 100 ML IV SCH ×3 (05:56→17:52)
[2016-05-23] MEDS: PRILOSEC PO SCH (06:00)
[2016-05-23] MEDS ORDERED: LASIX IV SCH (06:00)
[2016-05-23 07:42] LABS: BASO% 0.2 % (0.0-0.8); EOS# 0.05 X1000 (0.0-0.7); HEMATOCRIT 31.8 % (37.0-47.0); HEMOGLOBIN 9.9 g/dL (12.0-16.0); LYMPH# 0.43 X1000 (1.2-3.4); LYMPH% 8.6 % (20.5-51.1); MCH 29.4 PG (27-31); MCHC 31.1 g/dL (33-37); MCV 94.4 FL (81-99); MONO# 0.38 X1000 (0.11-0.59); MONO% 7.6 % (1.7-9.3); MPV 10.2 FL (7.4-10.4); NEUT% 82.6 % (42.2-75.2); PLT 143 X1000 (130-400); RBC 3.37 XMIL (4.2-5.4)
[2016-05-23 07:58] LABS: ALBUMIN 3.3 g/dL (3.5-5.0); CALCIUM 9.3 mg/dL (8.8-10.2); POTASSIUM 3.1 mmol/L (3.5-5.1); TOTAL BILIRUBIN 0.5 mg/dL (0.20-1.00); TOTAL PROTEIN 5.6 g/dL (6.3-8.3)
[2016-05-23 08:41] LABS: MANUAL DIFF NEEDED? NO
[2016-05-23] MEDS: KLOR-CON PO SCH ×2 (10:10→20:04)
[2016-05-23] MEDS: TOPROL XL PO SCH (10:10)
[2016-05-23] MEDS: FOLIC ACID PO SCH (10:10)
[2016-05-23] MEDS: DECADRON PO SCH (10:10)
[2016-05-23] MEDS: LASIX PO SCH (10:22)
--- NOTE | 2016-05-23 10:37 | Diag Imaging Result Document ---
PROCEDURE NAME: CHEST-2 VIEWS - 05/23/2016 PA AND LATERAL RADIOGRAPH OF THE CHEST: COMPARISON: 05/18/2016. FINDINGS: There are bilateral [id number] sized pleural effusions with fissural fluid on the right. This is similar to the previous study. There is better inspiration on the current study, however. There has been improvement in the opacity in the inferolateral right upper lobe seen previously. No new consolidations are identified. Cardiac silhouette is stable. IMPRESSION: Approximately stable bilateral effusions but with better inspiration and some improvement in the opacity in the inferolateral right upper lobe.
--- NOTE | 2016-05-23 21:40 | PROGRESS NOTE ---
DATE: 05/23/2016 SUBJECTIVE: The patient's chart was reviewed. In summary, the patient was admitted on 05/15/2016 with alteration of mental status. Full evaluation was pursued. MRI revealed possible newly metastatic lesions to the brain. Chest x-ray suggested persistent pleural effusions with mild pulmonary edema and basilar atelectasis. While hospitalized patient has been treated for a probable gram-negative pneumonia and acute on chronic diastolic heart failure. Upon arrival today patient was somewhat somnolent. She continues to require oxygen for adequate saturation. Energy level remains low but is slowly improving. She denies fevers, chills, overt shortness of breath, chest pains, or palpitations. Mental status has returned to baseline. OBJECTIVE: Vital signs: T-max 97.9, heart rate 83-109, respirations 16-19, blood pressure 106- 127 over 50-66. General: Chronically ill appearing, no acute distress. Cardiovascular: Regular rate and rhythm. No significant murmurs, rubs, or gallops. Pulmonary: Crackles at bilateral bases. Otherwise adequate air movement. Abdomen: Soft, nontender, nondistended. Positive bowel sounds. Extremities: Moves all extremities well, 2+ lower extremity edema bilaterally. Dermatologic: Evaluation reveals multiple ecchymoses. LABORATORY DATA: White blood cell count 5.01, hemoglobin 9.9, hematocrit 31.8, platelet count 143,000. Sodium 138, potassium 3.1, chloride 88, bicarb 36, BUN 23, creatinine 1.2, glucose 131, calcium 9.3, total bilirubin 0.50, total protein 5.6, albumin 3.3, alkaline phosphatase 115, AST 46, ALT 97. ASSESSMENT AND PLAN: 1. Pneumonia, possible [id number] x-ray today suggests some improvement in opacity in the inferolateral right upper lobe. For now, we will continue current antibiotic regimen. Will encourage incentive spirometry and aspiration precautions. 2. Bilateral pleural effusions-the patient's diuresis is approaching maximized. We will address as described below. Should she remain symptomatic or experience progressive shortness of breath, we will have a low threshold for pulmonary consultation and thoracentesis. 3. Acute on chronic diastolic heart failure-as above, patient has been diuresed. Her laboratory evaluation suggests she is approaching maximum diuresis. We will convert from IV Lasix to oral Lasix. We will continue to follow I's and O's. 4. Alteration of mental status-patient has achieved resolution with treatment of her underlying pneumonia, acute on chronic diastolic heart failure, and acute on chronic obstructive pulmonary disease. 5. Acute exacerbation of chronic obstructive pulmonary disease-patient has achieved improvement with bronchodilators, steroids, and broad-spectrum antibiotics. 6. Metastatic breast cancer to the brain-we will continue patient on Decadron therapy. 7. Profound weakness-patient has profound weakness. [facility] has accepted patient once she is able to be transferred. For now, we will continue physical therapy while hospitalized. 8. Prophylaxis-at this point, Lovenox is contraindicated with possible new metastatic lesions to the brain. 9. Sequential compression devices. Patient is unable tolerate sequential compression devices secondary to pain. I have encouraged ambulation and movement. 10. Disposition-at this point, patient continues to require snf care in the hospital setting. We will plan discharge rehabilitation once appropriate.
[2016-05-24] MEDS: ZOSYN 4.5 GM/NS 100 ML IV SCH ×4 (00:57→18:35)
[2016-05-24] MEDS: DUONEB (A & A) INH SCH ×4 (03:40→19:55)
[2016-05-24] MEDS: PRILOSEC PO SCH (06:03)
[2016-05-24 07:32] LABS: MANUAL DIFF NEEDED? NO
[2016-05-24 07:40] LABS: BASO% 0.2 % (0.0-0.8); EOS# 0.05 X1000 (0.0-0.7); EOS% 1.1 % (0.0-10.0); HEMATOCRIT 29.5 % (37.0-47.0); HEMOGLOBIN 9.2 g/dL (12.0-16.0); IMM GRAN# 0.04 X1000 (0.0-0.04); IMM GRAN% 0.9 % (0.0-0.5); LYMPH# 0.43 X1000 (1.2-3.4); LYMPH% 9.6 % (20.5-51.1); MCH 28.7 PG (27-31); MCHC 31.2 g/dL (33-37); MCV 91.9 FL (81-99); MONO# 0.42 X1000 (0.11-0.59); MONO% 9.4 % (1.7-9.3); MPV 10.4 FL (7.4-10.4); NEUT% 78.8 % (42.2-75.2); PLT 165 X1000 (130-400); RBC 3.21 XMIL (4.2-5.4)
[2016-05-24 07:50] LABS: ALBUMIN 3.1 g/dL (3.5-5.0); POTASSIUM 3.2 mmol/L (3.5-5.1); TOTAL BILIRUBIN 0.65 mg/dL (0.20-1.00); TOTAL PROTEIN 5.2 g/dL (6.3-8.3)
[2016-05-24] MEDS: DECADRON PO SCH (08:24)
[2016-05-24] MEDS: KLOR-CON PO SCH ×2 (08:24→20:47)
[2016-05-24] MEDS: TOPROL XL PO SCH (08:24)
[2016-05-24] MEDS: FOLIC ACID PO SCH (08:25)
[2016-05-24] MEDS: LASIX PO SCH (08:25)
[2016-05-24] MEDS: ZOFRAN IV PRN ×2 (10:11→13:26)
[2016-05-24] MEDS ORDERED: CALMOSEPTINE OINTMENT TOP PRN (13:04)
[2016-05-24] MEDS: TYLENOL PO PRN (13:26)
--- NOTE | 2016-05-24 14:46 | PROGRESS NOTE ---
DATE: 05/24/2016 SUBJECTIVE: The patient's overall condition is slightly improved from yesterday. Upon my initial evaluation this morning, patient was sitting up right in the head. The patient noted increasing shortness of breath. She was tolerating her medications well. She noted significant fatigue, but had experienced some improvement over the last several days. This evening, patient is back in bed. She notes her day has gone reasonably well. Her p.o. intake remains marginal. She denies fevers, chills, nausea, vomiting, or chest discomfort. Her mentation remains at baseline. OBJECTIVE: Vital signs: Temperature maximum 98.1 degrees, heart rate 69-99, respirations 17-20, blood pressure 113-131/49-56. General: Chronically ill-appearing, no acute distress. Cardiovascular: Regular rate and rhythm. No significant murmurs, rubs, or gallops. Pulmonary: Decreased breath sounds bilateral bases. Abdomen: Soft, nontender, nondistended. Positive bowel sounds. Extremities: Moves all extremities well. 2+ lower extremity edema bilaterally. Dermatologic: Evaluation reveals multiple ecchymoses. LABORATORY DATA: White blood cell count 4.46, hemoglobin 9.2, hematocrit 29.5, platelet count 165,000. Sodium 138, potassium 3.2, chloride 90, Bicarb 36, BUN 24, creatinine 1.2, glucose 104, calcium 9, total bilirubin 0.65, total protein 5.2, albumin 3.1, alkaline phosphatase 94, AST 40, ALT 79. ASSESSMENT AND PLAN: 1. Pneumonia, possible ekvg-bzwdqbic-mzprcnx's chest x-ray from yesterday revealed some improvement in the opacity in the inferolateral right upper lobe. As she has achieved improvement, we will continue IV antibiotics for now. We will encourage incentive spirometry and aspiration precautions. 2. Bilateral pleural effusions-yesterday, patient's laboratory evaluation suggested maximized diuresis. She was converted from IV to oral Lasix therapy. We will need to continue to follow this closely. Should symptoms progress, we will need to consider pulmonary consultation for thoracentesis. 3. Acute on chronic diastolic heart failure-as above, patient has been maximized with Lasix therapy. She was converted to oral Lasix yesterday. Further titration of this dosage may be necessary in the next several days or as an outpatient. 4. Alteration of mental status-patient has achieved resolution with treatment of her underlying pneumonia, acute on chronic diastolic heart failure, and acute on chronic obstructive pulmonary disease. We will remain aware. 5. Acute exacerbation of chronic obstructive pulmonary disease-patient is being treated with bronchodilators, steroids, and brought broad-spectrum antibiotics. We will continue this for now. 6. Metastatic breast cancer to the brain-patient is currently being treated with Decadron therapy. Further treatment will need to be determined by Dr. Kiera Lopez. 7. Profound weakness-[facility] has accepted patient for rehabilitation once prepared for discharge. For now, we will continue physical therapy in the hospital setting. We will plan discharge once appropriate. 8. Prophylaxis-unfortunately, patient is unable to tolerate sequential compression devices. She is not a candidate for Lovenox secondary to new brain metastases. We will continue to encourage movement. 9. Disposition-at this point, patient continues to require [facility] care in a hospital setting. We will plan discharge home once appropriate.
[2016-05-25] MEDS: ZOSYN 4.5 GM/NS 100 ML IV SCH ×4 (00:23→19:16)
[2016-05-25] MEDS: DUONEB (A & A) INH SCH ×4 (03:41→20:34)
[2016-05-25] MEDS: PRILOSEC PO SCH (06:07)
[2016-05-25 07:31] LABS: ALBUMIN 3.1 g/dL (3.5-5.0); CALCIUM 9.1 mg/dL (8.8-10.2); POTASSIUM 3.4 mmol/L (3.5-5.1); TOTAL BILIRUBIN 0.69 mg/dL (0.20-1.00); TOTAL PROTEIN 5.3 g/dL (6.3-8.3)
[2016-05-25] MEDS: DECADRON PO SCH (08:39)
[2016-05-25] MEDS: FOLIC ACID PO SCH (08:39)
[2016-05-25] MEDS: TOPROL XL PO SCH (08:39)
[2016-05-25] MEDS: KLOR-CON PO SCH ×2 (08:39→21:21)
[2016-05-25] MEDS: LASIX PO SCH (08:39)
[2016-05-25 09:08] LABS: HEMATOCRIT 29.1 % (37.0-47.0); HEMOGLOBIN 9.2 g/dL (12.0-16.0); MCH 29.6 PG (27-31); MCHC 31.6 g/dL (33-37); MCV 93.6 FL (81-99); MPV 10.7 FL (7.4-10.4); RBC 3.11 XMIL (4.2-5.4)
--- NOTE | 2016-05-25 09:19 | Diag Imaging Result Document ---
PROCEDURE NAME: CHEST-PORTABLE - 05/25/2016 PORTABLE CHEST: COMPARISON: 05/23/2016. FINDINGS: Heart size appears within normal limits. There are medium bilateral pleural effusions which appear grossly stable, allowing for the portable technique. There is an EKG lead attachment which overlies the medial right base. The upper lungs remain essentially clear. There is apparent mild scarring at the left apex. There is no dense consolidation or pneumothorax identified. IMPRESSION: Medium bilateral pleural effusions which appear grossly stable compared to the previous exam.
[2016-05-26] MEDS: ZOSYN 4.5 GM/NS 100 ML IV SCH ×2 (00:48→06:15)
[2016-05-26] MEDS: DUONEB (A & A) INH SCH ×2 (03:15→08:02)
[2016-05-26] MEDS: PRILOSEC PO SCH (06:15)
[2016-05-26] MEDS: TYLENOL PO PRN (07:54)
[2016-05-26] MEDS: TOPROL XL PO SCH (08:00)
[2016-05-26] MEDS: LASIX PO SCH (08:00)
[2016-05-26] MEDS: FOLIC ACID PO SCH (08:00)
[2016-05-26] MEDS: KLOR-CON PO SCH (08:00)
[2016-05-26] MEDS: DECADRON PO SCH (08:00)
--- NOTE | 2016-05-26 10:18 | EKG Report ---
Test Performed on : 05/26/2016 10:03:58 AM Test Reason : increased HR Blood Pressure : / mmHG Vent. Rate : 106 BPM Atrial Rate : 106 BPM P-R Int : 098 ms QRS Dur : 074 ms QT Int : 318 ms P-R-T Axes : 058 025 043 degrees QTc Int : 422 ms Sinus tachycardia. with short CT Minimal voltage criteria for LVH, may be normal variant Nonspecific T wave abnormality Abnormal ECG When compared with ECG of 25-JUL-2013 12:56, No significant change was found Confirmed by Diego LANGE, Mansoor Blevins ([id number]) on 05/27/2016 1:15:50 PM
[2016-05-26] MEDS ORDERED: TOPROL XL PO SCH (10:23)
[2016-05-26 11:25] VITALS: BP 121/57
[2016-05-26] MEDS ORDERED: DUONEB (A & A) INH SCH (13:00)
--- NOTE | 2016-05-26 13:50 | DISCHARGE SUMMARY ---
ADMISSION DATE: 05/14/2016 DISCHARGE DATE: 05/26/2016 DISCHARGE DIAGNOSES: 1. Metabolic encephalopathy. 2. Metastatic breast cancer with metastases to the brain. 3. Chronic respiratory failure with hypoxemia. 4. Acute chronic obstructive pulmonary disease exacerbation complicated by gram-negative pneumonia, acute on chronic congestive heart failure secondary to diastolic dysfunction. 5. Essential hypertension. 6. History of tobacco abuse. 7. Chronic lymphedema of the left upper extremity with cellulitis. DISCHARGE INSTRUCTIONS: 1. The patient will be transferred to [facility] in order to undergo short-term rehab. 2. Activity as tolerated. 3. Healthy heart diet. 4. Medications: O2 at 3 L per nasal cannula continuously, DuoNebs nebulized q. 6 hours, Decadron 4 mg daily, vitamin D 50,000 units weekly, folic acid 1 mg daily, Lasix 40 mg daily, Levaquin 500 mg daily for 10 days, metoprolol-XL 50 mg daily, Prilosec 20 mg daily, KCl 20 mEq daily, Spiriva one inhalation daily, Advair 250/50 one puff b.i.d. DISCHARGE PHYSICAL EXAM: General: This is a chronically ill-appearing, 61-year-old lady, who is alert and easily arousable. She is oriented to name, place, and time. Vital Signs: She is afebrile. Vital signs are stable. Cardiovascular: Regular rate and rhythm. Lungs: Faint crackles in the bases bilaterally. Abdomen: Soft, nontender, with active bowel sounds. Extremities: 1+ pitting edema. HOSPITAL COURSE: Ms. Kathrin Beasley was admitted to [facility] with altered mental status. She had increasing confusion and disorientation and was talking out of her head. She does have a history of metastatic breast cancer with known metastases to the brain. An MRI demonstrated a possible new third intracranial metastases. We increased the Decadron to 4 mg IV q. 6 hours and added IV Lasix. We obtained an MRI of from her oncologist in [place], and unfortunately the MRI was largely unchanged and we did not feel that there was a new lesion present. We gradually weaned her down to her standard dosage of Decadron 4 mg daily. She remained alert and easily arousable and answered questions appropriately. She has a longstanding history of COPD, for which she wears O2 at 3 L per nasal cannula. Unfortunately, she continues to smoke. We felt that she had an acute chronic obstructive pulmonary disease exacerbation. She had significant wheezing in combination with a productive cough and pleuritic chest pain. Chest x-rays showed a pneumonia. We continued supplemental O2, continued her standard COPD medicines, IV Decadron and started broad-spectrum antibiotics including Zosyn. With aggressive pulmonary toilet and medical management of the pneumonia, largely the pneumonia resolved. We felt that it was a gram-negative pneumonia given her leukocytosis immunocompromised state and her response to appropriate antibiotics. She also had acute on chronic congestive heart failure secondary to diastolic dysfunction. We placed her on a salt and fluid-restricted diet and aggressively diuresed her. I titrated upward on the Toprol to increase cardiac compliance. She responded well to therapy. She denied any further PND, orthopnea or dyspnea with exertion. She was maintaining O2 saturations in the mid 90s on supplemental oxygen. She does have chronic lymphedema of the left upper extremity. She was noted to have increasing redness and erythema of that arm. She had no fever or chills. She had no leukocytosis. We felt that she had a cellulitis, and could be treated as an outpatient with a 10 day course of Levaquin 500 mg daily. She is physically weak. After prolonged hospitalization, we did consult physical therapy, and she made slow, but steady progress with physical therapy. We felt that she would benefit from short- term rehab and referral was made to [facility]. Having reached maximum hospital benefit, the patient was discharged in stable condition.
[2016-05-26] MEDS ORDERED: ADVAIR 250/50 DISKUS INH SCH (19:30)
[2016-05-27] MEDS ORDERED: SPIRIVA INH SCH (07:30)
[2016-05-27] MEDS ORDERED: LEVAQUIN PO SCH (09:00)
== END 2016-05-26 14:49 | DRG 291 ==
LOC: ED 21:23 → EDIPHOLD 23:37 → 3N 05-15 15:52
PROVIDERS: ADMIT Internal Medicine; ATTEND Internal Medicine
DX: I11.0 Hypertensive heart disease with heart failure (principal); J15.6 Pneumonia due to other Gram-negative bacteria; G93.41 Metabolic encephalopathy; J96.11 Chronic respiratory failure with hypoxia; C78.7 Secondary malignant neoplasm of liver and intrahepatic bile duct; C79.31 Secondary malignant neoplasm of brain; J44.0 Chronic obstructive pulmonary disease with (acute) lower respiratory infection; L03.114 Cellulitis of left upper limb; C79.51 Secondary malignant neoplasm of bone; I50.33 Acute on chronic diastolic (congestive) heart failure; I50.32 Chronic diastolic (congestive) heart failure; R53.83 Other fatigue; C50.919 Malignant neoplasm of unspecified site of unspecified female breast; J44.9 Chronic obstructive pulmonary disease, unspecified; F17.210 Nicotine dependence, cigarettes, uncomplicated; Z99.81 Dependence on supplemental oxygen; M81.0 Age-related osteoporosis without current pathological fracture; Z79.899 Other long term (current) drug therapy; L98.499 Non-pressure chronic ulcer of skin of other sites with unspecified severity; I89.0 Lymphedema, not elsewhere classified
CPT/HCPCS: 51702; 70450; 70553; 71010; 71020; 80048; 80053; 81001; 82140; 82550; 82805; 83735; 83880; 84443; 84484; 85025; 85027; 85610; 85730; 87040; 93005; 93010; 94640; 94760; 94761; 94762; 94799; 96365; 96375; 96376; A9579; J1100; J1940; J2405; J2543; J2765; J8540; 97116-GP; 97530-GP

== ENCOUNTER 2016-09-13 13:57 | Inpatient (IN) ==
[2016-09-13] MEDS: LASIX IV SCH (16:23)
[2016-09-13] MEDS: LOVENOX SUBQ SCH (16:23)
[2016-09-13 16:59] LABS: EOS# 0.01 X1000 (0.0-0.7); EOS% 0.1 % (0.0-10.0); HEMATOCRIT 24.8 % (37.0-47.0); HEMOGLOBIN 7.7 g/dL (12.0-16.0); IMM GRAN# 0.04 X1000 (0.0-0.04); IMM GRAN% 0.5 % (0.0-0.5); LYMPH# 0.17 X1000 (1.2-3.4); LYMPH% 1.9 % (20.5-51.1); MANUAL DIFF NEEDED? YES; MCH 25.5 PG (27-31); MCV 82.1 FL (81-99); MONO# 0.32 X1000 (0.11-0.59); MONO% 3.7 % (1.7-9.3); MPV 10.7 FL (7.4-10.4); NEUT% 93.8 % (42.2-75.2); PLT 107 X1000 (130-400); RBC 3.02 XMIL (4.2-5.4)
[2016-09-13 17:09] LABS: AGAP 10; BUN 24 mg/dL (8-22); CALCIUM 8.6 mg/dL (8.8-10.2); CHLORIDE 93 mmol/L (98-107); COSMO 270; POTASSIUM 5.2 mmol/L (3.5-5.1); SODIUM 131 mmol/L (136-145); TCO2 28 mmol/L (25-35)
[2016-09-13 17:47] LABS: LYMPHS 2 % (21-51); MONO 2 % (1-9)
[2016-09-13] MEDS ORDERED: NEURONTIN PO SCH (21:00)
[2016-09-13] MEDS ORDERED: HUMULIN N SUBQ SCH (21:00)
[2016-09-13] MEDS: ALDACTONE PO SCH (21:00)
[2016-09-13] MEDS ORDERED: CARDIZEM PO SCH (21:00)
[2016-09-14] MEDS: LASIX IV SCH ×2 (03:50→10:52)
[2016-09-14] MEDS: PRILOSEC PO SCH (06:15)
[2016-09-14 06:57] LABS: HEMATOCRIT 29.9 % (37.0-47.0); HEMOGLOBIN 9.3 g/dL (12.0-16.0); MCH 25.8 PG (27-31); MCHC 31.1 g/dL (33-37); MCV 83.1 FL (81-99); MPV 9.6 FL (7.4-10.4); RBC 3.6 XMIL (4.2-5.4)
--- NOTE | 2016-09-14 07:36 | Diag Imaging Result Doc PS360 ---
EXAM: CHEST-PORTABLE HISTORY: CHF TECHNIQUE: AP portable at 0500 COMMENT: There is perihilar and interstitial edema more so on the left than the right. The right base is also somewhat hazy in appearance. There appears to be a small effusion on both sides. Compared to 08/27/2016 the left-sided pulmonary edema is worse. IMPRESSION: Pulmonary edema plus minus pneumonia with small bilateral pleural effusions. Electronically signed by Jacob Choi 09/14/2016 7:34 AM
[2016-09-14 07:37] LABS: CALCIUM 9.1 mg/dL (8.8-10.2); POTASSIUM 4.2 mmol/L (3.5-5.1)
--- NOTE | 2016-09-14 08:57 | PROGRESS NOTE ---
DATE: 09/14/2016 SUBJECTIVE: Ms. Beasley was admitted to [facility] with zzuhh-an-knssjmg congestive heart failure secondary to systolic dysfunction. We placed her on a salt and fluid restricted diet. She has had good urine output. She reports that she is breathing more comfortably. She is maintaining O2 saturations of 98% to 100% on 3 L of O2. She has chronic respiratory failure with hypoxia secondary to chronic obstructive pulmonary disease and congestive heart failure. She denies any chest pain, palpitations, or anginal equivalents. Cardiac enzymes are normal. She has a history of type 2 insulin-dependent diabetes mellitus complicated by polyneuropathy. She had an episode of hypoglycemia last night. She is currently on Humulin N 20 units subcutaneously b.i.d. OBJECTIVE: Vital Signs: Temperature 97.4 degrees, pulse 96, respirations 19, BP 136/73. CV: Regular rate and rhythm. Lungs: Distant breath sounds with increased period of expiration. There are crackles in the bases bilaterally. Abdomen: Soft, nontender, with active bowel sounds. Extremities: Trace pitting edema in the lower extremities. LABORATORY DATA: Various laboratory studies were obtained. A CBC demonstrated a white count of 9.4, hemoglobin 9.3, hematocrit 29.9, and a platelet count of 119,000. Electrolytes demonstrated the following: Sodium 131, potassium 4.2, chloride 90, BUN 26, creatinine 1.0. ASSESSMENT AND PLAN: 1. Chronic respiratory failure secondary to chronic obstructive pulmonary disease as well as zmnkf-gn-onxzbqv congestive heart failure secondary to diastolic dysfunction. We will continue a salt and fluid restricted diet. I will increase the Cardizem to 30 mg t.i.d. in order to improve cardiac compliance. I will back down on the Lasix to 40 mg IV daily. We will check a 2D echo with color Doppler and spectral flow Doppler studies. 2. Type 2 insulin-dependent diabetes mellitus complicated by polyneuropathy. I will reduce the NPH to 15 units subcutaneously b.i.d. and continue pattern sugars and a Humulin R sliding scale. I will increase the gabapentin to 600 mg b.i.d. 3. Urinary incontinence. She is having persistent nocturia and has had frequent accidents. She has been wearing a Depends. I will began Ditropan XL 10 mg daily and check an MRI of the LS spine. Given her history of metastatic breast cancer, I want to make sure that there are no lesions in the lower spine which could lead to urinary incontinence. The fact that she does not have incontinence of her bowels would suggest that the spine is not the etiology of her bladder incontinence. cc: Arely Beckwith MD
[2016-09-14] MEDS: NEURONTIN PO SCH ×2 (10:53→21:13)
[2016-09-14] MEDS: DECADRON PO SCH (10:54)
[2016-09-14] MEDS: FOLIC ACID PO SCH (10:54)
[2016-09-14] MEDS: DITROPAN XL PO SCH (10:54)
[2016-09-14] MEDS: ALDACTONE PO SCH ×2 (10:55→21:14)
[2016-09-14] MEDS: ZOLOFT PO SCH (10:55)
[2016-09-14] MEDS: KLOR-CON PO SCH (10:55)
[2016-09-14] MEDS: CARDIZEM PO SCH ×3 (10:56→21:14)
[2016-09-14] MEDS: HUMULIN N SUBQ SCH ×2 (10:56→17:37)
[2016-09-14] MEDS: AMPICILLIN 1 GM/NS 1 GM/50 ML IVPB IV SCH ×3 (10:57→21:13)
[2016-09-14] MEDS: CHLOR-TRIMETON PO SCH (10:58)
--- NOTE | 2016-09-14 11:02 | Diag Imaging Result Doc PS360 ---
EXAM: MRI LUMBAR SPINE W/O CONTRAST INDICATION: URINARY INCONTINENCE WITH HX METASTATIC BREAST CA TECHNIQUE: COMPARISON: None. FINDINGS: The spine and sacrum are very heterogeneous consistent with known diffuse bony metastatic disease from breast carcinoma. There is no evidence of pathologic fracture. There is no obvious epidural extension of disease given the limitations of an unenhanced study. The visualized surrounding soft tissues are essentially unremarkable. Segmental analysis of the lumbar spine is detailed below. T12-L1: Essentially unremarkable. L1-2: There is mild epidural lipomatosis causing minimal lateral narrowing of the central canal. The neuroforamina are widely patent. L2-3: There is a small broad-based disc bulge as well as epidural lipomatosis that together are causing moderate narrowing of the central canal. The neuroforamina are patent. L3-4: There is a small broad-based disc osteophyte complex as well as epidural lipomatosis. Together, this is causing moderate to severe central spinal stenosis. There is only mild foraminal narrowing but no definite nerve root compression. L4-5: There is a fairly small broad-based disc osteophyte complex but there is severe epidural lipomatosis. This is causing severe central spinal stenosis. There is only mild bilateral foraminal narrowing with no evidence of foraminal nerve root compression. L5-S1: There is a small broad-based disc osteophyte complex and there is severe epidural lipomatosis. This is causing very severe central spinal stenosis. There is also moderate bilateral foraminal stenosis at this level. There appears to be mild compression of the right L5 nerve root as it exits the neuroforamen, best appreciated on the sagittal T2 sequence. IMPRESSION: 1.Fairly mild multilevel degenerative disc disease but significant epidural lipomatosis at several levels. This appears to be most significant at L4-5 and especially L5-S1 where there is severe central spinal stenosis. Please see above level by level analysis. 2.Diffuse spinal and sacral metastatic disease. Electronically signed by Alexandre Jones 09/14/2016 10:59 AM
[2016-09-14] MEDS: DURAGESIC 100 MICROGM/HR PATCH TD SCH (14:04)
[2016-09-14] MEDS: LOVENOX SUBQ SCH (15:24)
[2016-09-14] MEDS: TYLENOL PO PRN (15:41)
[2016-09-14] MEDS ORDERED: CALMOSEPTINE OINTMENT TOP PRN (17:39)
[2016-09-14] MEDS: ULTRAM PO PRN (21:13)
[2016-09-15] MEDS: AMPICILLIN 1 GM/NS 1 GM/50 ML IVPB IV SCH ×5 (03:49→22:51)
[2016-09-15] MEDS: PRILOSEC PO SCH ×2 (05:20→05:21)
[2016-09-15] MEDS: CHLOR-TRIMETON PO SCH ×2 (07:48→08:00)
[2016-09-15] MEDS: HUMULIN N SUBQ SCH ×2 (07:48→16:25)
[2016-09-15] MEDS: LASIX IV SCH ×2 (07:48→08:01)
[2016-09-15] MEDS: NEURONTIN PO SCH ×3 (07:49→22:51)
[2016-09-15] MEDS: ALDACTONE PO SCH ×3 (07:50→22:51)
[2016-09-15] MEDS: KLOR-CON PO SCH ×2 (07:50→08:01)
[2016-09-15] MEDS: CARDIZEM PO SCH ×3 (07:50→22:51)
[2016-09-15] MEDS: FOLIC ACID PO SCH ×2 (07:50→08:00)
[2016-09-15] MEDS: DITROPAN XL PO SCH ×2 (07:51→08:01)
[2016-09-15] MEDS: DECADRON PO SCH ×2 (07:51→08:00)
[2016-09-15] MEDS: ZOLOFT PO SCH ×2 (07:51→08:00)
--- NOTE | 2016-09-15 08:48 | PROGRESS NOTE ---
DATE: 09/15/2016 SUBJECTIVE: Ms. Tashia Beasley was admitted to [facility] with jslpb-wq-dvpppta congestive heart failure secondary to diastolic dysfunction. We have aggressively diuresed her with Lasix. She denies any PND or orthopnea. Peripheral edema has improved greatly she is maintaining O2 saturations of 100% on 3 L of O2 per nasal cannula. She has a history of chronic low back pain with radiation of pain and numbness and tingling extending down her legs. She has had tremendous difficulty getting in and out of bed and ambulating around the house. She has had progressive weakness of the lower extremities. An MRI of the lumbar spine demonstrated diffuse spinal and sacral metastatic disease and significant multi-level degenerative disk disease at L4- L5 and L5-S1 where there is severe central spinal stenosis. She has a history of insulin- dependent diabetes mellitus complicated by polyneuropathy. She had several episodes of hypoglycemia yesterday and we reduced the dosage of insulin to 15 units subcutaneously b.i.d. Blood sugars are now in the 200s. OBJECTIVE: Vital Signs: Temperature 97.5 degrees, pulse is 99, respirations 18, BP 142/82. CV: Regular rate and rhythm. Lungs: Distant breath sounds with increased period of expiration. There are fine crackles in the bases bilaterally. Abdomen: Soft, nontender with active bowel sounds. Extremities: Trace ankle edema. ASSESSMENT AND PLAN: 1. Mqpfz-wz-qgxazkk congestive heart failure secondary to diastolic dysfunction. We will continue a salt and fluid restricted diet and I increased the diltiazem to 30 mg t.i.d. I am going to back down on the Lasix to 40 mg daily. I will recheck a basic metabolic panel today. We will arrange for a 2D echo with color Doppler and spectral flow Doppler studies. 2. Chronic low back pain secondary to lumbar spinal stenosis and metastatic disease to the spine. We began fentanyl patches 100 mcg daily. Her pain is much improved. She only had to take 1 Ultram at 9:00 last night. Unfortunately, she has severe spinal stenosis and metastatic disease to the spine. She is not a surgical candidate because of her severe underlying chronic respiratory failure due to severe chronic obstructive pulmonary disease and congestive heart failure. Given her immunocompromised state, I am afraid to proceed with an epidural given the increased risk of bleeding and infection. I think at this point, using a long- acting opioid to achieve pain control is both reasonable and necessary. I will continue to titrate upward on the gabapentin to try to keep narcotic use to the lowest most effective dosage. 3. Type 2 insulin-dependent diabetes mellitus. I will increase the NPH to 18 units subcutaneously b.i.d. and continue pattern sugars and a Humulin R sliding scale. 4. Physical debility. We will continue physical therapy and occupational therapy and are hoping to find a rehab bed at [facility] in [place]. cc: Arely Beckwith MD
--- NOTE | 2016-09-15 08:59 | Diag Imaging Result Doc PS360 ---
EXAM: CHEST-PORTABLE HISTORY: COPD TECHNIQUE: AP portable at 0845 COMMENT: There is pleural fluid bilaterally. There may be some pleural fibrosis on the left. The heart size and primary vascularity are within normal limits. Otherwise the lungs appear to be relatively clear. IMPRESSION: Small pleural effusions and/or pleural thickening and fibrosis. Electronically signed by Jacob Choi 09/15/2016 8:57 AM
[2016-09-15 09:13] LABS: HEMOGLOBIN 8.8 g/dL (12.0-16.0); MCH 25.9 PG (27-31); MCHC 31.4 g/dL (33-37); MCV 82.4 FL (81-99); MPV 10.6 FL (7.4-10.4); RBC 3.4 XMIL (4.2-5.4)
[2016-09-15 09:32] LABS: CALCIUM 8.6 mg/dL (8.8-10.2); POTASSIUM 4.4 mmol/L (3.5-5.1)
[2016-09-15] MEDS: LOVENOX SUBQ SCH (15:14)
--- NOTE | 2016-09-15 20:03 | ECHO REPORT ---
ORDER DATE: 09/15/2016 INTERPRETING PHYSICIAN: Dr. Arias REQUESTING PHYSICIAN: CLINICAL INDICATIONS: A 61-year-old female with CHF, diabetes, previous breast surgery. M-MODE MEASUREMENTS: Right ventricle: 2.3 cm. Left ventricle end diastole: 4.4 cm. Left ventricle end systole: 3.2 cm. Posterior wall: 0.8 cm. Interventricular septum: 0.8 cm. Left atrium: 3.0 cm. Aortic root: 3.1 cm. SUMMARY OF 2-DIMENSIONAL IMAGING: This study is technically limited. There is no good visualization of all the ventricular morocho. The global ejection fraction I suspect to be decreased in the range of 45-50%. I believe there is wall motion abnormality involving the inferior interventricular septum and the inferior wall in its basal aspect. Again, this is limited and I could be wrong, however, I would suggest to consider obtaining a myocardial perfusion stress test to correlate with this echocardiographic study. The right ventricle is normal. The atria appear to be normal. The mitral valve appears to be grossly normal with a mild degree of regurgitation. Pulse wave Doppler of mitral inflow shows reversal of the E and the A wave. Ratio is 0.6. Tissue Doppler of septal and lateral mitral annulus averages 5.5 cm per second. There is impaired left ventricular relaxation. The aortic valve opens normally. Color flow mapping unremarkable. The pulmonic valve looks grossly normal. The tricuspid valve shows a mild degree of regurgitation. The pulmonary pressure is estimated at 40 mmHg. There is no pericardial effusion, masses or thrombus. IMPRESSION: In summary, this study shows: 1. Mildly impaired left ventricular systolic function. Ejection fraction grossly in the range of 45-50% with suspected wall motion abnormality at the level of the inferior wall, inferior interventricular septum. 2. Impaired left ventricular relaxation. 3. Pulmonary pressure estimated at 40 mmHg. 4. No evidence of any significant valvular abnormality. Clinical correlation recommended. cc: MD Arely Glynn MD
[2016-09-16] MEDS: AMPICILLIN 1 GM/NS 1 GM/50 ML IVPB IV SCH (04:52)
[2016-09-16] MEDS: PRILOSEC PO SCH (06:38)
[2016-09-16] MEDS: NEURONTIN PO SCH ×2 (08:57→22:09)
[2016-09-16] MEDS: DITROPAN XL PO SCH (08:58)
[2016-09-16] MEDS: ALDACTONE PO SCH ×2 (08:58→22:09)
[2016-09-16] MEDS: KLOR-CON PO SCH (08:58)
[2016-09-16] MEDS: HUMULIN N SUBQ SCH ×2 (08:59→16:36)
[2016-09-16] MEDS: ZOLOFT PO SCH (08:59)
[2016-09-16] MEDS: DECADRON PO SCH (08:59)
[2016-09-16] MEDS: CARDIZEM PO SCH ×3 (08:59→22:09)
[2016-09-16] MEDS: CHLOR-TRIMETON PO SCH (09:00)
[2016-09-16] MEDS: FOLIC ACID PO SCH (09:01)
[2016-09-16] MEDS: LASIX LIQUID PO SCH (10:31)
[2016-09-16] MEDS: VITAMIN C PO SCH (10:31)
[2016-09-16] MEDS: FERGON PO SCH (10:31)
[2016-09-16] MEDS: LOVENOX SUBQ SCH (14:50)
[2016-09-17] MEDS: PRILOSEC PO SCH (06:11)
[2016-09-17] MEDS: LASIX LIQUID PO SCH (08:48)
[2016-09-17] MEDS: FERGON PO SCH (08:49)
[2016-09-17] MEDS: NEURONTIN PO SCH ×2 (08:49→20:23)
[2016-09-17] MEDS: ALDACTONE PO SCH ×2 (08:49→20:23)
[2016-09-17] MEDS: ZOLOFT PO SCH (08:49)
[2016-09-17] MEDS: FOLIC ACID PO SCH (08:50)
[2016-09-17] MEDS: VITAMIN C PO SCH (08:50)
[2016-09-17] MEDS: KLOR-CON PO SCH (08:50)
[2016-09-17] MEDS: DECADRON PO SCH (08:50)
[2016-09-17] MEDS: DITROPAN XL PO SCH (08:50)
[2016-09-17] MEDS: CARDIZEM PO SCH ×3 (08:50→20:23)
[2016-09-17] MEDS: CHLOR-TRIMETON PO SCH (08:51)
[2016-09-17] MEDS: HUMULIN N SUBQ SCH ×2 (08:51→16:46)
[2016-09-17] MEDS: LOVENOX SUBQ SCH (14:02)
[2016-09-17] MEDS: DURAGESIC 100 MICROGM/HR PATCH TD SCH (14:02)
[2016-09-18] MEDS: PRILOSEC PO SCH ×2 (04:21→06:05)
[2016-09-18] MEDS: CHLOR-TRIMETON PO SCH (09:15)
[2016-09-18] MEDS: FERGON PO SCH (09:15)
[2016-09-18] MEDS: FOLIC ACID PO SCH (09:15)
[2016-09-18] MEDS: ALDACTONE PO SCH ×2 (09:15→20:37)
[2016-09-18] MEDS: DITROPAN XL PO SCH (09:16)
[2016-09-18] MEDS: ZOLOFT PO SCH (09:16)
[2016-09-18] MEDS: DECADRON PO SCH (09:16)
[2016-09-18] MEDS: KLOR-CON PO SCH (09:16)
[2016-09-18] MEDS: VITAMIN C PO SCH (09:16)
[2016-09-18] MEDS: NEURONTIN PO SCH ×2 (09:16→20:37)
[2016-09-18] MEDS: VITAMIN D PO SCH (09:16)
[2016-09-18] MEDS: CARDIZEM PO SCH ×3 (09:16→20:37)
[2016-09-18] MEDS: HUMULIN N SUBQ SCH ×2 (09:16→16:50)
[2016-09-18] MEDS: LASIX LIQUID PO SCH (09:17)
[2016-09-18] MEDS: ULTRAM PO PRN ×2 (10:43→16:18)
[2016-09-18] MEDS: LOVENOX SUBQ SCH (14:52)
[2016-09-19] MEDS: ULTRAM PO PRN (04:53)
[2016-09-19] MEDS: PRILOSEC PO SCH (06:48)
[2016-09-19] MEDS: LINZESS PO SCH (06:48)
[2016-09-19] MEDS: HUMULIN N SUBQ SCH ×2 (08:21→16:49)
[2016-09-19] MEDS: LASIX LIQUID PO SCH (08:21)
[2016-09-19] MEDS: FOLIC ACID PO SCH (08:22)
[2016-09-19] MEDS: DECADRON PO SCH (08:22)
[2016-09-19] MEDS: FERGON PO SCH (08:23)
[2016-09-19] MEDS: CHLOR-TRIMETON PO SCH (08:23)
[2016-09-19] MEDS: CARDIZEM PO SCH ×3 (08:23→19:46)
[2016-09-19] MEDS: DITROPAN XL PO SCH (08:24)
[2016-09-19] MEDS: ALDACTONE PO SCH (08:24)
[2016-09-19] MEDS: VITAMIN C PO SCH (08:24)
[2016-09-19] MEDS: NEURONTIN PO SCH ×4 (08:24→19:45)
[2016-09-19] MEDS: KLOR-CON PO SCH (08:24)
[2016-09-19] MEDS: ZOLOFT PO SCH (08:24)
--- NOTE | 2016-09-19 10:15 | Diag Imaging Result Doc PS360 ---
EXAM: KNEE 3 VIEWS LEFT HISTORY: LEFT KNEE PAIN TECHNIQUE: Left knee three views COMMENT: there is mild osteophyte formation in the lateral femoral condyle. There is no evidence of fracture or dislocation. There is a suprapatellar effusion. IMPRESSION: Mild osteoarthritis. Effusion. Electronically signed by Jacob Choi 09/19/2016 10:13 AM
--- NOTE | 2016-09-19 11:31 | PROGRESS NOTE ---
DATE: 09/19/2016 SUBJECTIVE: Ms Tashia Beasley was with complaint of pain and swelling in the left knee. She has increasing pain in that knee with any sort of weightbearing exercises. She was admitted to [facility] with acute on chronic congestive heart failure secondary to diastolic dysfunction. Her most recent echo showed an EF of 45% to 50% with diastolic dysfunction. She is breathing more comfortably. Her O2 saturations are ranging from 97% to 98% on 3L of O2 per nasal cannula. She still has mild dyspnea with any sort of activity and diminished physical tolerance. She denies any PND, orthopnea, or increasing peripheral edema. Her swelling has improved significantly in her lower extremities. She is on chronic home oxygen due to the combination of heart failure and COPD. She is making very slow progress with physical therapy. She was only able to ambulate a few feet with assistance. Her back pain is under much better control on the fentanyl patch. She is using Ultram on a p.r.n. basis. She still has persistent numbness and tingling in the lower extremities bilaterally. Blood sugars are fluctuating. She has polyuria and polydipsia. OBJECTIVE: Vital Signs: Temperature 98.1 degrees, pulse 129 and regular, respiratory rate 18, blood pressure 148/73. Cardiovascular: Tachycardic. Regular S1 and S2. Lungs: Distant breath sounds with increased period of expiration. There are faint crackles in the bases bilaterally. Abdomen: Soft, nontender, with active bowel sounds. Extremities: Trace ankle edema. Musculoskeletal: There is swelling of the prepatellar bursa with diminished range of motion in the left knee secondary to pain. ASSESSMENT AND PLAN: 1. Prepatellar bursitis of the left knee. We will obtain an x-ray of the left knee and consult Dr. Lawson to see her from Orthopedics to make recommendations on how to best treat the chronic knee pain. 2. Type 2 insulin-dependent diabetes mellitus complicated by polyneuropathy. Blood sugars are fluctuating. I will increase the insulin to 30 units subcutaneously b.i.d. with meals. 3. Chronic low back pain secondary to severe spinal stenosis and metastatic breast cancer to the spine, sacrum, and pelvis. We will continue Duragesic 100 mcg patch every 3 days and Ultram for breakthrough pain. We will continue occupational therapy and physical therapy. We were trying to make arrangements for her to go to [facility], but Mr. Beasely it is expressing doubts as to whether she would be able to fully participate with rehabilitation. 4. Palpitations. I am going to check an EKG. 5. Chronic respiratory failure secondary to acute on chronic congestive heart failure secondary to diastolic dysfunction. She may be a little bit on the dry side. We will hold her Lasix. We will continue Cardizem and supplemental O2. cc: Arely Beckwith MD
--- NOTE | 2016-09-19 12:36 | EKG Report ---
Test Performed on : 09/19/2016 08:41:00 AM Test Reason : TACHYCARDIA Blood Pressure : / mmHG Vent. Rate : 114 BPM Atrial Rate : 114 BPM P-R Int : 128 ms QRS Dur : 062 ms QT Int : 332 ms P-R-T Axes : 049 020 134 degrees QTc Int : 457 ms Sinus tachycardia. Nonspecific ST and T wave abnormality Abnormal ECG When compared with ECG of 27-AUG-2016 20:35, No significant change was found Confirmed by Arely Beckwith MD ([id number]) on 09/19/2016 2:08:14 PM
[2016-09-19] MEDS: LOVENOX SUBQ SCH (14:15)
--- NOTE | 2016-09-19 15:12 | CONSULTATION ---
DATE OF CONSULTATION: 09/19/2016 HISTORY OF PRESENT ILLNESS: Ms. Beasley is a 61-year-old female, who has been complaining of this left knee pain ever since a fall about a week or so ago. She was admitted to the hospital for acute on chronic heart dysfunction. We have been treating her for that, and a lot of the swelling in the legs have gotten better. This left knee pain has just persisted, especially when she gets up to ambulate and bear weight. Most the pain is on the anterior aspect of the knee. It is worse with bearing weight; it does feel better when she rests it. PAST MEDICAL HISTORY: Congestive heart failure. Breast cancer. Osteoporosis. COPD. PAST SURGICAL HISTORY: Tonsillectomy, adenoidectomy, left mastectomy, hysterectomy. ALLERGIES: Codeine. HOME MEDICATIONS: Per the medical record. SOCIAL HISTORY: She lives with her . She has a history of smoking. REVIEW OF SYSTEMS: Positive for this left knee pain and the above-mentioned problems. All other systems are essentially negative. PHYSICAL EXAMINATION: General: Ill-appearing female, but in no acute distress. HEENT: Head and neck normocephalic. Respirations: She is on oxygen nasal cannula, but is breathing normally. Abdomen: Nondistended. She has a regular pulse. Extremities: Left lower extremity exam: She has tenderness to palpation up to the knee at the medial and lateral joint lines and does feel like she has a palpable effusion present. She is neurovascularly intact left lower extremity. Skin ulcerations or abrasions seen around the knee. RADIOGRAPHS: Several views of the left knee were obtained and shows no fracture seen and actually fairly good joint spaces. ASSESSMENT: Left knee pain. PLAN: I went over with Ms. Beasley about her x-rays. It looks like everything is well aligned and I do not see any fractures present. I wonder if during the fall she had a big bony contusion since she bleeds pretty easily; she probably bled into her joint and it has caused a lot of irritation inflammation. I want to put her in a knee immobilizer here in the hospital, and then I will see her in about a week in clinic. At that point, we decide whether we want to try an injection in the knee versus a more functional brace. cc: MD Arely Coulter MD
[2016-09-19] MEDS ORDERED: LOVENOX 1 MG/KG SUBQ SCH (16:45)
[2016-09-19] MEDS ORDERED: LOVENOX SUBQ ONE ×2 (16:45→17:00)
[2016-09-19 16:49] LABS: ALLEN TEST YES; BE 4.1 mmoll (-3.0-3.0); BLOOD TYPE ARTERIAL; DRAW SITE R RADIAL; O2(CT) 12.2 mL/dL (15.0-23.0); PCO2(98.6) 41 mmHg (35-45); PO2(98.6) 140 mmHg (60-100); SAMPLE BLOOD; SAO2 95.9 % (95.0-100.0); THB 8.8 g/dL (11.5-17.4); pH(98.6) 7.45 (7.35-7.45)
[2016-09-19] MEDS: LEVAQUIN 500 MG/D5W 500 MG/100 ML IVPB IV SCH (16:49)
[2016-09-19] MEDS: LASIX IV SCH (16:49)
[2016-09-19 16:50] LABS: MODALITY CANNULA
[2016-09-19] MEDS: DURAGESIC 50 MICROGM/HR PATCH TD SCH (16:50)
[2016-09-19 17:17] LABS: HEMATOCRIT 28.7 % (37.0-47.0); HEMOGLOBIN 9.2 g/dL (12.0-16.0); MCH 25.3 PG (27-31); MCHC 32.1 g/dL (33-37); MCV 79.1 FL (81-99); MPV 11.4 FL (7.4-10.4); RBC 3.63 XMIL (4.2-5.4)
[2016-09-19 17:39] LABS: CALCIUM 9.1 mg/dL (8.8-10.2)
[2016-09-19] MEDS: ZOFRAN IV PRN (18:36)
--- NOTE | 2016-09-19 19:05 | Diag Imaging Result Doc PS360 ---
EXAM: CHEST-PORTABLE HISTORY: DYSPNEA TECHNIQUE: AP portable upright at 1705 COMMENT: Considering differences in projection, the appearance of the chest has not changed significantly since 09/15/2016. There is apparent fibrosis in the costophrenic angles and retrocardiac atelectasis or fibrosis in the left lower lobe. IMPRESSION: Stable chest. Electronically signed by Jacob Choi 09/19/2016 7:02 PM
[2016-09-19] MEDS: ATROVENT NEB INH SCH (23:30)
[2016-09-20] MEDS: CARDIZEM PO SCH ×4 (02:15→20:54)
[2016-09-20] MEDS: NEURONTIN PO SCH ×3 (02:16→20:54)
[2016-09-20] MEDS: LASIX IV SCH (05:46)
[2016-09-20] MEDS: LINZESS PO SCH ×2 (05:46→06:08)
[2016-09-20] MEDS: PRILOSEC PO SCH ×2 (05:46→06:08)
[2016-09-20] MEDS: LOVENOX SUBQ SCH ×2 (05:46→16:40)
[2016-09-20] MEDS: ATROVENT NEB INH SCH ×3 (07:46→23:07)
[2016-09-20] MEDS: HUMULIN N SUBQ SCH ×2 (08:04→16:39)
[2016-09-20] MEDS: KLOR-CON PO SCH (08:04)
[2016-09-20] MEDS: CHLOR-TRIMETON PO SCH (08:05)
[2016-09-20] MEDS: FOLIC ACID PO SCH (08:05)
[2016-09-20] MEDS: VITAMIN C PO SCH (08:05)
[2016-09-20] MEDS: DITROPAN XL PO SCH (08:05)
[2016-09-20] MEDS: DECADRON PO SCH (08:05)
[2016-09-20] MEDS: FERGON PO SCH (08:05)
[2016-09-20] MEDS: ZOLOFT PO SCH (08:05)
[2016-09-20] MEDS ORDERED: NS 250 ML IV ONE (08:44)
--- NOTE | 2016-09-20 13:54 | PROGRESS NOTE ---
DATE: 09/20/2016 SUBJECTIVE: When I saw Ms. Beasley last night, she had been sleeping a great deal through the day and seemed more sedated. We reduced the dosage of gabapentin and Duragesic. She seems much more alert this morning. She is actively carrying on a conversation with nursing staff and her family. She answers questions appropriately. She reports that she is breathing more comfortably. She is maintaining O2 saturations of 98-100% on 3 L of O2. Chest x-ray showed resolution of the pleural effusions. She has significant pulmonary fibrosis. Her blood pressure was a little bit low today at 98/74. Her creatinine was 1.2. Blood sugars are still in the range of 173-214. PHYSICAL EXAMINATION: Vital Signs: Temperature 97.9 degrees, pulse 110, respirations 18, BP 98/74. CV: Tachycardic. Regular S1, S2. Lungs: Distant breath sounds with increased period of expiration. Abdomen: Soft, nontender, with active bowel sounds. ASSESSMENT AND PLAN: 1. Hyponatremia. She has been on spironolactone. I am going to hold the spironolactone and cautiously give her fluids. I will recheck a BMP. 2. Type 2 insulin-dependent diabetes mellitus. Her blood sugars are trending downward. We will continue the NPH insulin 30 units subcutaneously twice a day. 3. Acute on chronic congestive heart failure secondary to diastolic dysfunction. She seems a little bit dry. Her creatinine is up to 1.2. Her blood pressure is a little bit low. We will hold the Lasix. We will cautiously give her fluids. 4. Physical debility. We will continue physical therapy and are awaiting a rehab bed at [facility]. cc: Arely Beckwith MD
[2016-09-20 15:11] LABS: CALCIUM 8.7 mg/dL (8.8-10.2)
[2016-09-20] MEDS: LEVAQUIN 500 MG/D5W 500 MG/100 ML IVPB IV SCH (15:51)
[2016-09-20] MEDS: NS 1,000 ML IV SCH (16:40)
[2016-09-20] MEDS: TYLENOL PO PRN (20:53)
[2016-09-21] MEDS: LINZESS PO SCH (06:01)
[2016-09-21] MEDS: PRILOSEC PO SCH (06:01)
[2016-09-21] MEDS: NS 1,000 ML IV SCH (06:02)
[2016-09-21] MEDS: ATROVENT NEB INH SCH ×3 (07:37→22:41)
[2016-09-21] MEDS: DECADRON PO SCH (09:07)
[2016-09-21] MEDS: DITROPAN XL PO SCH (09:07)
[2016-09-21] MEDS: NEURONTIN PO SCH ×2 (09:07→20:37)
[2016-09-21] MEDS: FERGON PO SCH (09:07)
[2016-09-21] MEDS: CHLOR-TRIMETON PO SCH (09:08)
[2016-09-21] MEDS: ZOLOFT PO SCH (09:08)
[2016-09-21] MEDS: VITAMIN C PO SCH (09:08)
[2016-09-21] MEDS: FOLIC ACID PO SCH (09:08)
[2016-09-21] MEDS: KLOR-CON PO SCH (09:09)
[2016-09-21 09:12] LABS: HEMATOCRIT 24.7 % (37.0-47.0); HEMOGLOBIN 7.8 g/dL (12.0-16.0); MCH 25.9 PG (27-31); MCHC 31.6 g/dL (33-37); MCV 82.1 FL (81-99); MPV 9.8 FL (7.4-10.4); RBC 3.01 XMIL (4.2-5.4)
[2016-09-21 09:30] LABS: CALCIUM 8.7 mg/dL (8.8-10.2); POTASSIUM 4.9 mmol/L (3.5-5.1)
[2016-09-21] MEDS ORDERED: CARDIZEM PO ONE (09:30)
[2016-09-21] MEDS: HUMULIN N SUBQ SCH ×2 (09:32→18:24)
[2016-09-21] MEDS: LOVENOX SUBQ SCH ×2 (09:33→20:38)
[2016-09-21] MEDS ORDERED: BENADRYL PO ONE (11:18)
--- NOTE | 2016-09-21 13:10 | PROGRESS NOTE ---
DATE: 09/21/2016 SUBJECTIVE: Mrs. Tashia Beasley was admitted to [facility] with acute on chronic congestive heart failure secondary to diastolic dysfunction. She has been tachycardic. Her creatinine jumped from 0.8-1.4. We have held her Lasix and have cautiously given her fluid. Her creatinine has dropped from 1 to 1.1. Her pulse it is trending down. She is breathing comfortably. She is maintaining O2 saturations of 99% on 3 L of O2. Blood pressure is stable. She denies any chest pain or anginal equivalents. OBJECTIVE: Vital signs: Temperature 98.6 degrees, pulse 112, respiratory rate 18, blood pressure 134/66. Cardiovascular: Tachycardic. Regular S1, S2. Lungs: Distant breath sounds with increased period of expiration. Abdomen: Soft, nontender, with active bowel sounds. LABORATORY DATA: A CBC demonstrated the following: White count 8.34, hemoglobin 7.8, hematocrit 24.7, and a platelet count of a 113,000. Electrolytes demonstrated the following: Sodium 124, potassium 4.9, chloride 84, BUN 34, creatinine 1.1, and glucose 136. ASSESSMENT AND PLAN: 1. Hyponatremia. Her sodium his trending upward off the spironolactone and with gentle hydration. I will recheck a BMP in the morning. 2. Acute renal failure. Her creatinine has jumped from 0.8 to 1.4. It is back down to 1.1 with fluid resuscitation. We will continue gentle fluid resuscitation and recheck a BMP in the morning. 3. Acute on chronic congestive heart failure secondary to diastolic dysfunction. Clinically, she is doing better. We will continue supplemental O2 and titrate upward on the Cardizem to 60 mg t.i.d. to improve cardiac compliance. 4. Chronic low back pain secondary to severe lumbar spinal stenosis and distant metastases to the spine and sacrum. We will continue gabapentin 600 mg b.i.d. and fentanyl 50 mcg one patch to the chest q.3 days. cc: Arely Beckwith MD
[2016-09-21] MEDS: CARDIZEM PO SCH ×2 (15:19→20:38)
[2016-09-21] MEDS: LEVAQUIN 500 MG/D5W 500 MG/100 ML IVPB IV SCH (17:56)
[2016-09-22] MEDS: ZOFRAN IV PRN (00:35)
[2016-09-22] MEDS: TYLENOL PO PRN ×2 (00:35→08:36)
[2016-09-22] MEDS: LINZESS PO SCH (06:20)
[2016-09-22] MEDS: PRILOSEC PO SCH (06:20)
[2016-09-22 07:27] LABS: HEMATOCRIT 30.5 % (37.0-47.0); HEMOGLOBIN 9.9 g/dL (12.0-16.0); MCH 26.1 PG (27-31); MCHC 32.5 g/dL (33-37); MCV 80.5 FL (81-99); MPV 10.4 FL (7.4-10.4); RBC 3.79 XMIL (4.2-5.4)
[2016-09-22] MEDS: ATROVENT NEB INH SCH ×3 (07:38→22:29)
[2016-09-22 07:51] LABS: CALCIUM 8.9 mg/dL (8.8-10.2); POTASSIUM 4.6 mmol/L (3.5-5.1)
[2016-09-22] MEDS: VITAMIN C PO SCH (08:35)
[2016-09-22] MEDS: FERGON PO SCH (08:35)
[2016-09-22] MEDS: CARDIZEM PO SCH ×3 (08:35→21:59)
[2016-09-22] MEDS: DITROPAN XL PO SCH (08:35)
[2016-09-22] MEDS: FOLIC ACID PO SCH (08:36)
[2016-09-22] MEDS: LOVENOX SUBQ SCH ×2 (08:36→21:58)
[2016-09-22] MEDS: ZOLOFT PO SCH (08:36)
[2016-09-22] MEDS: DECADRON PO SCH (08:36)
[2016-09-22] MEDS: KLOR-CON PO SCH (08:38)
[2016-09-22] MEDS: NEURONTIN PO SCH ×2 (08:38→21:59)
[2016-09-22] MEDS: CHLOR-TRIMETON PO SCH (08:39)
[2016-09-22] MEDS: HUMULIN N SUBQ SCH ×2 (09:06→18:45)
--- NOTE | 2016-09-22 12:37 | PROGRESS NOTE ---
DATE: 09/22/2016 SUBJECTIVE: Her family reports that she is having periods of confusion and disorientation. At times, she has strange ideas and talks out of her head. She was asking if her grown children were still in school this morning. She answers questions appropriately. She is alert and easily arousable. She is oriented to name, place and time. Her serum sodium is persistently low at 123. In the spring of this year her serum sodium was in the mid 130s. She has been on spironolactone which has subsequently been discontinued. She does have known intracranial metastases. Blood sugars are still fluctuating; sugars are ranging from 130 to 230. She has polyuria and polydipsia. She is breathing comfortably. She is maintaining O2 saturations of 98% on 3 L of O2. Renal function is improving with fluid resuscitation. OBJECTIVE: Vital signs: Temperature 98.4 degrees, pulse 124, respiratory rate 18, BP 142/79. CV: Tachycardic, regular S1, S2. Lungs: Distant breath sounds with increased period of expiration. Abdomen: Soft, nontender, with active bowel sounds. Extremities: Trace ankle edema. LABORATORY DATA: Various laboratory studies were performed. A CBC demonstrated white count 10.06, hemoglobin 9.9, hematocrit 30.5 and a platelet count of 142,000. Electrolytes demonstrate the following: Sodium 122, potassium 4.6, chloride 84, BUN 29, creatinine 1.2, glucose 123. ASSESSMENT AND PLAN: 1. Confusion. I believe that the etiology of her confusion is multifactorial. She does have intracranial brain metastases; I am going to check an MRI of the brain to assess the stability of those lesions. She has persistent hyponatremia. The low sodium has not really improved off the Aldactone. I am going to check a urine osmolality, urine sodium to rule out syndrome of inappropriate antidiuretic hormone. Given her mildly elevated BUN and creatinine, I really do not think that she is euvolemic at this time. I suspect that she is really still mildly volume depleted and we will continue fluids. Potentially it might be worth a trial of Samsca. We will consult nephrology. She is on long-term pain medicines for the management of her chronic low back pain. I am going to back down on the Duragesic to 25 mcg one patch every 3 days. 2. Acute on chronic congestive heart failure secondary to diastolic dysfunction. Clinically, she appears to be a little bit dry. We will continue to hold the Lasix. We will titrate the diltiazem to improve cardiac compliance. We will continue to diurese her on an as-needed basis. 3. Stage IV metastatic breast cancer with intracranial metastases, as well as metastases to the spine and pelvis. Aware. cc: Arely Beckwith MD
--- NOTE | 2016-09-22 15:28 | Diag Imaging Result Doc PS360 ---
EXAM: MRI BRAIN W/O CONTRAST HISTORY: Confusion TECHNIQUE: Axial, sagittal, and coronal images obtained in multiple sequences. COMPARISON: 05/15/2016. FINDINGS: There is a poorly defined area of abnormal signal in the right basal ganglia near the anterior horn of the internal capsule and caudate. The appearance of this area is similar to that of the prior exam. Prior study with contrast demonstrated an enhancing lesion in the midportion of this area. There is also abnormal signal superiorly and medially in the right parietal lobe along the falx. This area also had abnormal signal and a tiny enhancing area on the postcontrast images. No definite new area of abnormal signal on this noncontrasted exam. No midline shift. No hydrocephalus. There is atrophy. No epidural or subdural fluid collection. IMPRESSION: Stable MRI of the brain. Electronically signed by Lázaro Steele 09/22/2016 3:26 PM
[2016-09-22] MEDS: DURAGESIC 50 MICROGM/HR PATCH TD SCH (16:00)
[2016-09-22] MEDS: LEVAQUIN 500 MG/D5W 500 MG/100 ML IVPB IV SCH (16:00)
--- NOTE | 2016-09-22 16:31 | CONSULTATION ---
DATE OF CONSULTATION: 09/22/2016 REASON FOR ADMISSION: Pain and swelling in the left knee. Acute on chronic congestive heart failure. REASON FOR CONSULTATION: Hyponatremia. CONSULTING PHYSICIAN: Dr. Kael Beckwith. HISTORY OF PRESENT ILLNESS: This is a 61-year-old female admitted to the hospital secondary to pain and swelling to the left knee with some congestive heart failure secondary to diastolic dysfunction. Initially her sodium was 131. It has trended downwards and is now at 122, had actually risen yesterday to 124. She had her spironolactone and Lasix held secondary to her hyponatremia. Because it has not improved we have been asked to see the patient. In discussion with the patient she states that she has had episodes of low sodium before and has even had to be on "salt pills" at home in the past. She does have a history of breast cancer with metastasis to the brain. She has previously been on chemotherapy and in the past is also had thoracentesis needed secondary for chronic pleural effusion. She states today that she feels basically in her normal state of health. Her knee has been followed up by ortho. She is on her normal level of oxygen. She continues to have swelling that she states is at her normal level. She denies any nausea, vomiting. She denies any dizziness. There is no mention of confusion noted and the patient is alert and oriented and able to give an appropriate history in discussion today. PAST MEDICAL HISTORY: Congestive heart failure secondary to diastolic dysfunction, breast cancer with metastasis to the brain previously on chemo, bone and liver metastasis as well, osteoporosis moderate, COPD. She has chronic lymphedema. She has had a pleural effusion the past that has required thoracentesis. PAST SURGICAL HISTORY: Tonsillectomy and adenoidectomy, left mastectomy, hysterectomy, Port-A- Cath placement removal x2, thoracentesis, right chemical pleurodesis. ALLERGIES: Codeine. HOME MEDICATIONS: Chlorphentermine, omeprazole, folic acid, furosemide, ergocalciferol, dexamethasone, insulin, diltiazem, potassium chloride, gabapentin, sertraline, spironolactone, albuterol and tramadol. Of note she has been on the sertraline for over a year. FAMILY HISTORY: Noncontributory to current hospitalization. SOCIAL HISTORY: She has a previous history of smoking. No ETOH or illicit drug use. She is . REVIEW OF SYSTEMS: Pertinent positives noted above in the HPI. PHYSICAL EXAMINATION: Vital Signs: Temperature 98.4 degrees, pulse 124, respiratory rate 18, blood pressure 142/79. Intake 1.8 L. Output has not been measured. She is voiding. General: This is a chronically ill-appearing middle-aged female who appears much older than her stated age. She is awake, alert, oriented x4 and able to give an appropriate history. HEENT : Normocephalic, atraumatic. Conjunctivae are pale. Oral mucosa is moist. Tongue is midline. Neck: Supple. Trachea midline. No JVD noted. Cardiovascular: Regular rate and rhythm. S1- S2. No murmur, gallop appreciated. Pulmonary: She has some decreased breath sounds bilaterally. She has no overt rales or rhonchi noted. She is on 2 L nasal cannula which is her chronic level. Abdomen: Soft with positive bowel sounds. : Not inspected, she is voiding. Extremities: She has chronic pitting edema bilateral lower extremities all way up to the thighs. Lymphedema noted. She has vascular changes bilateral lower extremities with redness, erythema. She has wounds that are dressed to bilateral lower extremities with drainage noted. LAB DATA: WBC of 10.0, hemoglobin 9.9, hematocrit 30.5 and platelet count of 142,000. Sodium 122 (124, 123, 121, 130, 131) potassium 4.6, chloride 84, CO2 24, BUN 29, creatinine 1.2 (baseline 0.8), serum osmolality 264. ASSESSMENT AND PLAN: 1. Hyponatremia. The patient's spironolactone has been held. Her Lasix has been held because it was felt she was somewhat dry. Of note the patient is on Zoloft and the patient does have a history of hyponatremia that has required treatment with oral medications per the patient. We would advocate stopping her Zoloft and using another type of antidepressant possibly Wellbutrin that may assist without side effect of hyponatremia or SIADH. The patient already has urine studies and additional lab work that has been ordered. Those results are pending. Dependent on those results would also possibly add back some very gentle hydration. Addendum: Urine studies back with low urine sodium indicating prerenal state. Discussed with Dr. Copeland and would hold Lasix but continue gentle hydration with close monitoring for fluid volumes. To hold Zoloft secondary to possible SIADH and hyponatremia side effects. Can be added back after discharge per discretion of PCP or another agent used. Thank you for the consult. Dictated by KUN Allen for Xavi Copeland MD cc: MD Arely Barr MD [facility]
[2016-09-22] MEDS ORDERED: NS 1,000 ML IV SCH (21:50)
[2016-09-23] MEDS: TYLENOL PO PRN (04:54)
[2016-09-23] MEDS: LINZESS PO SCH (06:02)
[2016-09-23] MEDS: PRILOSEC PO SCH (06:03)
[2016-09-23] MEDS: ATROVENT NEB INH SCH ×3 (08:03→22:36)
[2016-09-23 09:00] LABS: ALBUMIN 3.3 g/dL (3.5-5.0); CALCIUM 8.8 mg/dL (8.8-10.2)
[2016-09-23 09:01] LABS: POTASSIUM 5.6 mmol/L (3.5-5.1)
[2016-09-23] MEDS: DECADRON PO SCH (10:09)
[2016-09-23] MEDS: CARDIZEM PO SCH ×3 (10:09→21:11)
[2016-09-23] MEDS: DURAGESIC 12 MICROGM/HR PATCH TD SCH (10:09)
[2016-09-23] MEDS: VITAMIN C PO SCH (10:10)
[2016-09-23] MEDS: CHLOR-TRIMETON PO SCH (10:10)
[2016-09-23] MEDS: FOLIC ACID PO SCH (10:10)
[2016-09-23] MEDS: HUMULIN N SUBQ SCH ×2 (10:11→17:26)
[2016-09-23] MEDS: LOVENOX SUBQ SCH ×2 (10:11→21:12)
[2016-09-23] MEDS: NEURONTIN PO SCH ×2 (10:11→21:11)
[2016-09-23] MEDS: FERGON PO SCH (10:11)
--- NOTE | 2016-09-23 11:17 | PROGRESS NOTE ---
DATE: 09/23/2016 Mrs. Beasley has a history of mild cognitive impairment. Throughout her hospitalization she has continued with fluctuating levels of confusion and disorientation. She will talk out of her head at times. Her family reports that she is not having visual or auditory hallucinations. She is alert and oriented to name, place, and time. Her reports that she says crazy things. An MRI of the brain demonstrated stable intracranial metastases. Her serum sodium is trending upward. Serum sodium has increased from 122-127. She is having no overt seizure activity. Renal function is improving with gentle hydration. We had diuresed her pretty aggressively with Lasix as she came in with acute on chronic congestive heart failure secondary to diastolic dysfunction. She is breathing more comfortably. Her O2 saturations were in the range of 98-100% on 3 L of O2. Blood pressure is stable. Blood sugars are ranging from 133-218.Vital signs: Temperature 98.4 degrees, pulse 107, respirations 24, BP 140/80. CV: Tachycardiac. Regular. S1, S2. Lungs: Distant breath sounds with increased period of expiration. No overt wheezing. Abdomen: Is soft, nontender, with active bowel sounds. Extremities: Trace ankle edema. ASSESSMENT AND PLAN: 1. Metabolic encephalopathy. I suspect that the etiology of the encephalopathy is multifactorial. She has serum hyponatremia. She does not appear to have true SIADH. She is mildly volume depleted. We will continue gentle hydration. I will recheck a BMP in the morning. We will stop the Zoloft which can cause SIADH type symptoms and begin Wellbutrin. We will try to simplify any and all medications which can with worsening confusion. I will stop the Ditropan. I will reduce the Duragesic patch to 12.5 mcg daily. 2. Type 2 insulin-dependent diabetes mellitus. We will continue an 1800 calorie ADA diet, pattern sugars, and her regular home dosage of NPH insulin. 3. Hyperkalemia. I will stop the supplemental potassium and recheck a BMP in the morning. cc: Arely Beckwith MD
--- NOTE | 2016-09-23 12:02 | PROGRESS NOTE ---
DATE: 09/23/2016 SUBJECTIVE: The patient is sitting up in a chair. She states that she has been ambulatory with assistance from PT. OBJECTIVE: Vital Signs: Temperature 98.4 degrees, pulse 107, respiratory rate 24, blood pressure 135/80, intake 1.2 L. Output 225 mL plus voids not measured. General: This is a chronically ill- appearing, middle-aged female resting in a chair looking much older than her stated age. She is awake, alert, oriented x4. HEENT: Normocephalic, atraumatic. Oral mucosa moist. Neck is supple. Trachea midline. Cardiovascular: Regular rate and rhythm. No murmur or gallop appreciated. Pulmonary: Continues with decreased breath sounds bilaterally. She is clear on O2 supplementation via nasal cannula with no increased work of breathing. Abdomen is soft with positive bowel sounds. : Not inspected. She is voiding. Extremities: Chronic pitting edema bilateral lower extremities up to the thighs. Lymphedema noted. Vascular changes bilateral noted. Dressings noted to bilateral lower extremities with drainage noted to them. Integumentary: Skin is extremely thin with multiple ecchymoses noted to all extremities. Chronic changes noted. LABORATORY DATA: Sodium 127, potassium 5.6, CO2 of 26. BUN 28, creatinine 1.2. ASSESSMENT AND PLAN: 1. Hyponatremia. The patient's creatinine has improved modestly over night. We have continued with gentle IV hydration and holding her Zoloft. Continue to monitor. 2. Fluid volume. She does have chronic edema but does not appear fluid overloaded at this time. Continue to monitor. Dictated by KUN Allen for Xavi Copeland MD cc: MD Arely Barr MD
[2016-09-23] MEDS: WELLBUTRIN SR PO SCH (14:52)
[2016-09-24] MEDS: LINZESS PO SCH (06:14)
[2016-09-24] MEDS: PRILOSEC PO SCH (06:14)
[2016-09-24 07:39] LABS: AGAP 9; BUN 26 mg/dL (8-22); CALCIUM 8.7 mg/dL (8.8-10.2); CHLORIDE 92 mmol/L (98-107); COSMO 257; SODIUM 125 mmol/L (136-145); TCO2 24 mmol/L (25-35)
[2016-09-24] MEDS: ATROVENT NEB INH SCH ×3 (07:39→23:12)
[2016-09-24] MEDS: LOVENOX SUBQ SCH ×2 (07:41→20:50)
[2016-09-24] MEDS: WELLBUTRIN SR PO SCH ×2 (07:41→14:33)
[2016-09-24] MEDS: CARDIZEM PO SCH ×3 (07:41→20:50)
[2016-09-24 08:31] LABS: ALBUMIN 2.9 g/dL (3.5-5.0); POTASSIUM 5.4 mmol/L (3.5-5.1)
[2016-09-24] MEDS: DECADRON PO SCH (09:12)
[2016-09-24] MEDS: VITAMIN C PO SCH (09:12)
[2016-09-24] MEDS: CHLOR-TRIMETON PO SCH (09:12)
[2016-09-24] MEDS: HUMULIN N SUBQ SCH ×2 (09:14→17:07)
[2016-09-24] MEDS: FERGON PO SCH (09:14)
[2016-09-24] MEDS: FOLIC ACID PO SCH (09:14)
[2016-09-24] MEDS: NEURONTIN PO SCH ×2 (09:14→20:50)
[2016-09-24] MEDS ORDERED: SAMSCA PO ONE (10:23)
--- NOTE | 2016-09-24 11:40 | PROGRESS NOTE ---
DATE: 09/24/2016 SUBJECTIVE: Ms. Beasley has a history of mild cognitive impairment. She is alert and oriented to name, place, and time. She had been having episodes of confusion and disorientation. She had been talking out of her head. Her serum sodium had increased to 127 yesterday. It is back down to 125 this morning. We stopped the Zoloft, reduced the fentanyl, and also stopped the Ditropan. Her family reports that she is much more clear headed this morning and has not been talking out of her head. Renal function has normalized with gentle rehydration. She is maintaining good O2 saturations of 99-100% on 3 L of O2. OBJECTIVE: Vital Signs: Temperature 97.8 degrees, pulse 96, respirations 20, BP 128/82. CV: Regular rate and rhythm. Lungs: Clear. Abdomen: Soft, nontender, with active bowel sounds. Laboratory Data: Various laboratory studies were obtained. A BMP demonstrated the following: Sodium 125, potassium 5.4, chloride 92, CO2 24, BUN 26, creatinine 0.9, and glucose 102. ASSESSMENT AND PLAN: 1. Metabolic encephalopathy. The etiology of the encephalopathy was multifactorial, related to the hyponatremia, intracranial brain metastasis, plus medications. She seems less confused and is not talking out of her head at times anymore. As her BUN and creatinine have normalized, we will stop the fluids. Her serum sodium is still low. Her sodium has dropped even though she appears to be euvolemic. I am going to give her a 1 time dose of Samsca 15 mg by mouth daily, and recheck a BMP in 8 hours and again in the morning. 2. Chronic low back pain secondary to lumbar spinal stenosis and distant metastases. We will continue Duragesic 12.5 mcg 1 patch to the chest every 3 days and gabapentin. 3. Type 2 insulin-dependent diabetes mellitus. We will continue patterned sugars, Humulin R sliding scale, and her regular home dosage of NPH insulin. cc: Arely Beckwith MD
--- NOTE | 2016-09-24 14:43 | PROGRESS NOTE ---
DATE: 09/24/2016 SUBJECTIVE: Patient resting in bed. She has had some decreased sensorium and a little bit worsening confusion overnight. OBJECTIVE: Vital Signs: Temperature 97.8 degrees, pulse 96, respiratory rate 20, blood pressure 128/82. Intake 960 mL. Output 325. General: A chronically ill-appearing, elderly female, resting in bed. She is in no acute distress. HEENT: Normocephalic, atraumatic. She has facial edema noted. Neck: Supple. Trachea midline. Cardiovascular: Regular rate and rhythm. Pulmonary: Decreased breath sounds. O2 supplementation. No increased work of breathing. Abdomen: Soft. Positive bowel sounds. : Voiding. Extremities: Chronic pitting edema, lymphedema, vascular changes noted. Dressings noted bilateral lower extremities. Integumentary: Skin is extremely thin. Ecchymoses noted. Chronic changes. LAB DATA: Sodium 125, potassium 5.4, chloride 92, CO2 24, BUN 26, creatinine 0.9. ASSESSMENT AND PLAN: Hyponatremia. Sodium is 125 today. The patient is being dosed with Samsca per the primary. We agree with this and with rechecking her numbers again later on today. We will make sure that she does not have a fluid restriction as it is contraindicated with Samsca. Her IV fluids have been held secondary to the fact that she appears euvolemic at this time. She is several liters positive noted. Dictated by KUN Allen for Xavi Copeland MD cc: MD Arely Barr MD [facility]
[2016-09-24] MEDS: ZANTAC PO SCH (20:50)
[2016-09-25] MEDS: PRILOSEC PO SCH (06:22)
[2016-09-25] MEDS: WELLBUTRIN SR PO SCH ×2 (06:22→15:19)
[2016-09-25] MEDS: LINZESS PO SCH (06:22)
[2016-09-25 06:58] LABS: AGAP 14; BUN 26 mg/dL (8-22); CHLORIDE 94 mmol/L (98-107); COSMO 271; SODIUM 133 mmol/L (136-145); TCO2 25 mmol/L (25-35)
[2016-09-25 07:04] LABS: AGAP 14; ALBUMIN 3.2 g/dL (3.5-5.0); BUN 27 mg/dL (8-22); CALCIUM 9.1 mg/dL (8.8-10.2); CHLORIDE 94 mmol/L (98-107); COSMO 271; POTASSIUM 5.1 mmol/L (3.5-5.1); SODIUM 133 mmol/L (136-145); TCO2 25 mmol/L (25-35)
--- NOTE | 2016-09-25 09:27 | PROGRESS NOTE ---
DATE: 09/25/2016 SUBJECTIVE: Ms. Beasley was admitted to [facility] with acute on chronic congestive heart failure secondary to diastolic dysfunction. We have aggressively diuresed her and titrated upward on the diltiazem. She is breathing comfortably. She is maintaining O2 saturations of 98- 99% on 2 L of O2. She wears O2 at 2 L per nasal cannula continuously. She denies any PND, orthopnea, or increasing peripheral edema. She has had a metabolic encephalopathy which the etiology was multifactorial. We gave her a dose of Samsca yesterday as she was euvolemic but was still hyponatremic. Her serum sodium has risen to 133. She is awake and easily arousable. She is oriented to name, place, and time. She has not been talking out of her head or having any significant episodes of confusion. Her blood pressure remains well controlled. She denies any chest pain, palpitations, or anginal equivalents. Blood sugars are ranging from 83-245. She does have polyuria and polydipsia. PHYSICAL EXAMINATION: Vital Signs: Temperature 97.4 degrees, pulse 104, respirations 20, BP 138/73. CV: Tachycardic. Regular S1, S2. Lungs: Distant breath sounds with increased period of expiration. Abdomen: Soft, nontender, with active bowel sounds. Extremities: Trace ankle edema. LABS: Various laboratory studies were performed. A BMP demonstrates the following: Sodium 133, potassium 5, chloride 94, BUN 26, creatinine 0.9, and glucose 89. ASSESSMENT AND PLAN: 1. Acute on chronic congestive heart failure secondary to diastolic dysfunction. We will continue a salt and fluid restricted diet. We will titrate upward on the diltiazem to increase cardiac compliance. She will weigh daily and if she gains 2 pounds in 24 hours, she may take Lasix 40 mg daily. 2. Chronic respiratory failure secondary to chronic obstructive pulmonary disease. Clinically, she is doing well. We will continue O2 at 2 L per nasal cannula, ipratropium nebulized three times a day, Decadron 2 mg daily. 3. Chronic low back pain secondary to severe spinal stenosis and metastases to the spine and pelvis. We will continue fentanyl 12 mcg 1 patch to the chest every 3 days and gabapentin 600 mg twice a day. cc: Arely Beckwith MD
[2016-09-25] MEDS: NEURONTIN PO SCH ×2 (09:45→20:50)
[2016-09-25] MEDS: FOLIC ACID PO SCH (09:45)
[2016-09-25] MEDS: VITAMIN D PO SCH (09:45)
[2016-09-25] MEDS: FERGON PO SCH (09:45)
[2016-09-25] MEDS: VITAMIN C PO SCH (09:45)
[2016-09-25] MEDS: CARDIZEM PO SCH ×3 (09:45→20:50)
[2016-09-25] MEDS: ZANTAC PO SCH ×2 (09:46→20:50)
[2016-09-25] MEDS: LOVENOX SUBQ SCH ×2 (09:46→21:13)
[2016-09-25] MEDS: CHLOR-TRIMETON PO SCH (09:47)
[2016-09-25] MEDS: DECADRON PO SCH (09:47)
--- NOTE | 2016-09-25 10:07 | PROGRESS NOTE ---
DATE: 09/25/2016 SUBJECTIVE: Patient is sitting up on the side of the bed. She is much more awake and alert today. She is being assisted to the chair by physical therapy. OBJECTIVE: Vital Signs: Temperature 97.4 degrees, pulse 104, respiratory rate 20, blood pressure 138/73. Intake 840 mL. Output 1.2 L. Physical Examination: General: Chronically ill-appearing, elderly female, sitting up in bed. She is awake, alert x3, and in no acute distress. HEENT: Normocephalic and atraumatic. She continues with some facial edema noted. Trachea midline. Neck: Supple. Cardiovascular: Regular rate and rhythm. Pulmonary: She does have some decreased breath sounds. She has no overt rales or wheezes noted today. She is on 2 L nasal cannula. Abdomen: Soft, with positive bowel sounds. : She continues to void. Extremities: Chronic pitting edema , lymphedema with vascular changes noted. She has a brace to her left leg. She has dressings noted to the right leg. Integumentary: Her skin is extremely thin. She has ecchymoses noted. Lab Data: Sodium 133, potassium 5.1, creatinine 0.9. ASSESSMENT AND PLAN: Hyponatremia. Patient was euvolemic yesterday and was given 1 dose of Samsca 15 mg. She had an appropriate response. Sodium is back up into the 130s today and patient's sensorium is greatly improved. She is in slightly negative fluid territory with the diuretic effect from Samsca. I agree with d/c if her sodium is stable in the morning. rg Seen, data reviewed, discussed with Sangita Genao on 09/25/16. I agree with the above assessment and plan of care. rg Dictated by KUN Allen for Xavi Copeland MD cc: MD Arely Barr MD [facility]
[2016-09-25] MEDS: ATROVENT NEB INH SCH ×3 (10:53→23:56)
[2016-09-25] MEDS: HUMULIN N SUBQ SCH (17:17)
[2016-09-26] MEDS: LINZESS PO SCH (06:33)
[2016-09-26] MEDS: PRILOSEC PO SCH (06:33)
[2016-09-26] MEDS: WELLBUTRIN SR PO SCH ×2 (06:34→19:49)
[2016-09-26] MEDS: ATROVENT NEB INH SCH ×3 (07:58→23:23)
[2016-09-26 08:15] LABS: ALBUMIN 3.1 g/dL (3.5-5.0); CALCIUM 8.6 mg/dL (8.8-10.2); POTASSIUM 4.9 mmol/L (3.5-5.1)
[2016-09-26] MEDS: ZANTAC PO SCH ×2 (10:49→20:19)
[2016-09-26] MEDS: NEURONTIN PO SCH ×2 (10:50→20:19)
[2016-09-26] MEDS: DECADRON PO SCH (10:50)
[2016-09-26] MEDS: CARDIZEM PO SCH ×3 (10:50→20:19)
[2016-09-26] MEDS: FOLIC ACID PO SCH (10:50)
[2016-09-26] MEDS: VITAMIN C PO SCH (10:50)
[2016-09-26] MEDS: FERGON PO SCH (10:51)
[2016-09-26] MEDS: HUMULIN N SUBQ SCH ×2 (10:51→19:50)
[2016-09-26] MEDS: DURAGESIC 12 MICROGM/HR PATCH TD SCH (10:51)
[2016-09-26] MEDS: CHLOR-TRIMETON PO SCH (10:51)
[2016-09-26] MEDS: LOVENOX SUBQ SCH (10:53)
[2016-09-26 14:05] LABS: HEMATOCRIT 30.2 % (37.0-47.0); HEMOGLOBIN 9.4 g/dL (12.0-16.0); MCHC 31.1 g/dL (33-37); MCV 86.8 FL (81-99); MPV 9.7 FL (7.4-10.4); RBC 3.48 XMIL (4.2-5.4)
[2016-09-26] MEDS: TYLENOL PO PRN ×2 (15:28→22:46)
--- NOTE | 2016-09-26 17:17 | PROGRESS NOTE ---
DATE: 09/26/2016 SUBJECTIVE: Mrs. Beasley has hyponatremia secondary to SIADH. Her serum sodium dropped from 133- 129 today. She is awake and easily arousable. Her speech is fluent. There is no flight of ideas or nonsensical speech. She is breathing fairly comfortably. OBJECTIVE: She is maintaining O2 saturations of 95%-96% on 2 L of O2 per nasal cannula. Blood sugars are still fluctuating, blood sugars are ranging from 179-249.Vital signs: Temperature 98.3 degrees, pulse 100, BP 126/73, respiratory rate 18. CV: Tachycardic. Regular S1, S2. Lungs: Distant breath sounds with increased period of expiration. Abdomen: Soft, nontender, with active bowel sounds. LABORATORY DATA: BMP demonstrates the following: Sodium 129, potassium 4.9, chloride 92, BUN 29, creatinine 1.1, and glucose 188. ASSESSMENT AND PLAN: 1. Hyponatremia secondary to SIADH. We will continue salt and fluid restricted diet. I do not believe that we need to give additional Samsca at this time. I will recheck a BMP in the morning. 2. Type 2 insulin-dependent diabetes mellitus complicated by polyneuropathy. Blood sugars are too high. I am going to increase the NPH insulin to 40 units subcutaneously daily and continue pattern sugars and a Humulin R sliding scale. 3. Physical debility. We will continue physical therapy and are awaiting a rehab bed at [facility]. cc: Arely Beckwith MD
[2016-09-26 17:32] LABS: HEMATOCRIT 30.5 % (37.0-47.0); HEMOGLOBIN 9.5 g/dL (12.0-16.0)
[2016-09-26] MEDS ORDERED: LASIX IV ONE (17:45)
--- NOTE | 2016-09-26 18:28 | PROGRESS NOTE ---
DATE: 09/26/2016 SUBJECTIVE: Ms. Beasley is sitting up in a chair. She denies any pain. No increased work of breathing. She remains alert and oriented. OBJECTIVE: Her most recent vital signs. Temperature 98.3 degrees, blood pressure 126/73, heart rate 100, respirations 16. She is on 2 L nasal cannula. Last recorded saturation 96%. She has had 720 in. There is 0 recorded out though patient states that she has been voiding adequate in the last 24-48 hours. LABS: Sodium 129, potassium 4.9, chloride 92, CO2 22, BUN 29, creatinine 1.1, glucose 188, anion gap 15, calcium 8.6, phosphorus 3.4, albumin 3.1. White count 11.09, hemoglobin 9.4, hematocrit 30.2 with a platelet count of 134,000. PHYSICAL EXAMINATION: General: This is a 61-year-old white female. She appears older than her stated age. She is awake and alert. She is oriented x3. She is in no acute distress. Skin: Warm and dry. HEENT: Normocephalic, atraumatic. She continues with facial edema. Trachea is midline. Conjunctiva is pink. She has CARLTON. Mucous membranes moist. Neck: Supple. Trachea midline. Unable to determine JVD due to swelling. Cardiovascular: She is regular rate and rhythm. No appreciable murmur or gallop. Lungs: Clear to auscultation anterior though she does have decreased breath sounds posterior secondary to body habitus. She remains on O2. Equal excursion. Abdomen: Soft. Positive bowel sounds. Genitourinary: She continues to void adequate amount. We have requested that she help keep an I and O. Extremities : Have chronic pitting edema 3+ bilateral though these legs have been dependent. She continues with some lymphedema and vascular changes have been noted. Patient had bilateral wraps, dressings noted secondary to drainage. Integumentary: Lower extremities are not inspected secondary to drainage and dressings. Some ecchymoses noted to her extremities. Neurological: She is alert and oriented x3. ASSESSMENT AND PLAN: 1. Hyponatremia. Patient had been euvolemic. She was given a dose of Samsca 15 mg. she did have an appropriate response. Her sodium has now dropped back down to 129 from 133. She remains alert and oriented. She is in a positive fluid balance of 1 L in the last 24 hours. We will discuss with possibly giving her 1 more dose of Samsca to assist with her hyponatremia. We will continue to monitor. I would like to thank you for allowing us to follow with this patient. Seen, data reviewed, discussed with Jolly Maldonado on o09/26/16. I agree with the above assessment and plan of care. rg Dictated by KUN Bolivar for Xavi Copeland MD cc: KUN Bolivar MD M. Neel Roberts, MD [facility]
[2016-09-26 18:43] LABS: CALCIUM 8.6 mg/dL (8.8-10.2)
[2016-09-26] MEDS ORDERED: DULCOLAX PR ONE (19:56)
[2016-09-27] MEDS: LINZESS PO SCH (06:13)
[2016-09-27] MEDS: WELLBUTRIN SR PO SCH (06:13)
[2016-09-27] MEDS: PRILOSEC PO SCH (06:13)
[2016-09-27] MEDS ORDERED: FLEET ENEMA PR ONE (07:12)
[2016-09-27] MEDS: ATROVENT NEB INH SCH (07:57)
--- NOTE | 2016-09-27 07:57 | Diag Imaging Result Doc PS360 ---
EXAM: ABDOMEN FLAT/UPRIGHT INDICATION: constipation TECHNIQUE: 3 views COMPARISON: None. FINDINGS: There is somewhat increased stool in the colon suggesting possible mild to moderate constipation. There is no obstructive bowel pattern. There is no evidence of large volume free abdominal gas. There is no evidence of organomegaly. There appear to be incidental small pleural effusions bilaterally. IMPRESSION: 1.Suggestion of mild to moderate constipation. 2.Incidental small bilateral pleural effusions. Electronically signed by Alexandre Jones 09/27/2016 7:54 AM
[2016-09-27 08:21] VITALS: BP 145/76
[2016-09-27] MEDS: FERGON PO SCH (08:55)
[2016-09-27] MEDS: NEURONTIN PO SCH (08:55)
[2016-09-27] MEDS: CARDIZEM PO SCH (08:56)
[2016-09-27] MEDS: VITAMIN C PO SCH (08:56)
[2016-09-27] MEDS: FOLIC ACID PO SCH (08:56)
[2016-09-27] MEDS: ZANTAC PO SCH (08:56)
[2016-09-27] MEDS: DECADRON PO SCH (08:56)
[2016-09-27] MEDS: CHLOR-TRIMETON PO SCH (08:57)
[2016-09-27] MEDS: HUMULIN N SUBQ SCH (08:57)
[2016-09-27] MEDS ORDERED: SENOKOT PO SCH (09:00)
[2016-09-27] MEDS ORDERED: MIRALAX PO SCH (09:00)
[2016-09-27 09:24] LABS: ALBUMIN 3.4 g/dL (3.5-5.0); CALCIUM 8.1 mg/dL (8.8-10.2); POTASSIUM 4.6 mmol/L (3.5-5.1)
--- NOTE | 2016-09-27 10:22 | DISCHARGE SUMMARY ---
ADMISSION DATE: 09/13/2016 DISCHARGE DATE: 09/27/2016 DISCHARGE DIAGNOSES: 1. Metabolic encephalopathy. 2. Hyponatremia secondary to syndrome of inappropriate antidiuretic hormone. 3. Chronic respiratory failure with hypoxia secondary to end-stage chronic obstructive pulmonary disease. 4. Acute on chronic congestive heart failure secondary to diastolic dysfunction. 5. Stage 4 recurrent breast cancer with metastases to the brain, spine, and pelvis. 6. Lumbar spinal stenosis. 7. Acute blood loss anemia. 8. Type 2 insulin dependent diabetes mellitus complicated by polyneuropathy. 9. Acute constipation. 10.Depression. DISCHARGE INSTRUCTIONS: 1. The patient will be transferred to [facility] in [place], [place] in order to undergo subacute rehab. 2. Activity as tolerated. 3. 1800 calorie ADA diet. 4. Medications: Tylenol 650 mg every 6 hours p.r.n. temperature greater than 101, ascorbic acid 500 mg daily, Wellbutrin SR 150 mg b.i.d., chlorpheniramine 4 mg daily, Decadron 2 mg daily, diltiazem 60 mg t.i.d., vitamin D 50,000 units weekly, fentanyl patch 12 mcg one patch to the chest every 3 days, Fergon 240 mg daily, folic acid 1 mg daily, Neurontin 600 mg b.i.d., NPH insulin 40 units subcutaneously b.i.d., ipratropium nebulized t.i.d., Linzess 290 mcg daily, Prilosec 20 mg daily, MiraLAX 17 grams in 8 ounces of water daily, Zantac 150 mg b.i.d., and Senokot 1 p.o. b.i.d. PHYSICAL EXAMINATION: GENERAL: This is a chronically ill-appearing 61-year-old lady in no apparent distress. VITAL SIGNS: Temperature is 97.4, pulse 102, respiratory rate 17, and BP 145/76. CV: Tachycardic. Regular S1, S2. LUNGS: Distant breath sounds with increased period of expiration. ABDOMEN: Mildly distended with good bowel sounds. No hepatosplenomegaly. No abdominal bruits. EXTREMITIES: Trace ankle edema. ASSESSMENT: The patient was admitted to [facility] with chronic respiratory failure secondary to COPD as well as acute on chronic congestive heart failure secondary to diastolic dysfunction. We initially placed her on a salt and fluid restricted diet and increased the Cardizem initially to 30 mg t.i.d. in order to improve cardiac compliance. We diuresed her aggressively with Lasix. She ruled out for myocardial ischemia by serial enzymes. Her initial chest x-ray demonstrated pulmonary edema with small bilateral pleural effusions. Over the course of her hospitalization we aggressively diuresed her and titrated upward on the Cardizem. Her 2D echocardiogram demonstrated mildly impaired left ventricular systolic function with an EF of 45%- 50% and impaired left ventricular relaxation. She had elevated pulmonary pressures at 40 mmHg. She improved clinically with the medication changes and we were able to back down on the Lasix as she became mildly prerenal as her creatinine jumped from 0.9 to 1.2. She maintained O2 saturations of 95%-98% on 2 L of O2. She does have a longstanding history of chronic low back pain. Her MRI demonstrated multilevel degenerative disk disease with severe spinal stenosis at L4-L5 and L5-S1. She also has peripheral neuropathy secondary to the diabetes. The pain was incapacitating at times. We started a Duragesic patch and increased the gabapentin with stabilization of her pain. Unfortunately, the combination of gabapentin and Duragesic tended to increase her confusion and sedation and we gradually backed down to Duragesic 12 mcg one patch every 3 days and gabapentin 600 mg b.i.d. with good control of her pain. The patient did have acute blood loss anemia. Stools were heme negative. She was transfused 1 unit of packed red blood cells with stabilization of her blood counts. During her hospitalization she had a metabolic encephalopathy. Urinalysis and urine cultures were negative. Chest x-rays demonstrated no infiltrates. She never had a leukocytosis. We felt that her metabolic encephalopathy was a combination of multiple etiologies including hyponatremia, intracranial brain mets, and medications. We reduced the dosages of fentanyl and gabapentin. We stopped the Ditropan. An MRI of the brain demonstrated stable intracranial metastatic disease. She did have persistent hyponatremia, serum dropped as low as 122. Urine osmolality studies were suggestive of a prerenal state. We held her Lasix and cautiously rehydrated her. After appropriately rehydrating her, her serum sodium remained low. We consulted nephrology. We were concerned about the possibility of syndrome of inappropriate antidiuretic hormone. We stopped the Zoloft. We gave her a dosage of Samsca. Her serum sodium jumped to 133. She did retain a little bit of fluid due to the Samsca. We gave her an additional dosage of Lasix and her serum sodium was 126 on 09/26/2016. Neurologically she improved back to her baseline. She was alert and oriented to name, place, and time. She answered questions appropriately. She did not talk out of her head or have any strange ideas. She denied any hallucinations. She has a history of type 2 insulin dependent diabetes mellitus. We made multiple adjustments in her insulin regimen. Her sugars were ranging from 150 to 210 at discharge. Having reached maximum hospital benefit the patient was discharged in stable condition. cc: Arely Beckwith MD
--- NOTE | 2016-09-27 13:02 | PROGRESS NOTE ---
DATE: 09/27/2016 SUBJECTIVE: Ms. Beasley had just gotten back from having abdominal x-ray. She is sitting up in a chair. Legs are elevated. She denies chest pain. She has slightly increased work of breathing. OBJECTIVE: Her most recent vital signs: Temperature 97.5 degrees, blood pressure 153/66, heart rate 107, respirations 16. She is on 2 L nasal cannula. Last recorded saturation 95%. She has had 200 In. She has had 800 out void. LABORATORY DATA: Her labs are currently pending. Her last sodium was 126 yesterday evening. Previous hemoglobin 9.5 on 09/26/2016, yesterday a.m. Abdominal x-ray shows some constipation with small bilateral pleural effusions. PHYSICAL EXAMINATION: General: This is a 61-year-old white female who appears older than her stated age. She is awake. She is alert and oriented. Skin is warm and dry. HEENT: Normocephalic, atraumatic. Conjunctiva is pale. She has CARLTON. Mucous membranes are moist. Facial edema continues. She does have right sclera reddened, she thinks from rubbing it during the night, to the right outer corner. Neck supple. Trachea midline. Unable to determine JVD due to facial swelling. Cardiovascular: Regular rate and rhythm. She has no murmur or gallop appreciated. Lungs are clear to auscultation anteriorly. Diminished breath sounds posterior bases. Remains on O2. Equal excursion. Abdomen is large, round, soft, nontender. Positive bowel sounds. Genitourinary: Patient is voiding adequate amount. She is getting up and walking to the bathroom. We have requested that she keeps an accurate I and O. Extremities have chronic pitting edema with bilateral dressings noted. These are dry and intact. Integumentary: Lower extremities have not been inspected secondary to drainage with dressings. Ecchymoses noted to her upper extremities. Neurological: She is alert and oriented x3. ASSESSMENT AND PLAN: Hyponatremia. Patient has had a minimal drop in her sodium level in the last 24 hours. Labs are currently pending this a.m. She remains on a 1 L fluid restriction in the last 24 hours. We will continue to look for her labs this a.m. for treatment. Patient has no further complaints. No dizziness. No headaches. I would to thank you for allowing us to follow with this patient. Seen, data reviewed, discussed with Jolly Maldonado on 09/27/16. I agree with the above assessment and plan of care. rg Dictated by KUN Bloivar for Xavi Copeland MD cc: KUN Bolivar MD M. Neel Roberts, MD [facility]ITAL[facility]aron
== END 2016-09-27 11:12 ==
LOC: DIRADM 13:57 → 3N 14:36
PROVIDERS: ADMIT Internal Medicine; ATTEND Internal Medicine